=== PATIENT | male | born 1950 | race African-American/Black ===

== ENCOUNTER 2018-09-04 14:57 | Inpatient (IN) | payer OTHER ==
[2018-09-04] MEDS ORDERED: ALBUTEROL SO4 2.5/IPRATROPIUM 0.5 INH SOL 3 ML VIAL.NEB. NEB ONE ×2 (15:59→16:09)
[2018-09-04] MEDS: ALBUTEROL SO4 2.5/IPRATROPIUM 0.5 INH SOL 3 ML VIAL.NEB. NEB SCH ×4 (16:00→17:16)
--- NOTE | 2018-09-04 16:06 | PDOC ---
History of Present Illness - General Chief Complaint: Shortness of Breath Stated Complaint: DIFFICULTY BREATHING Time Seen by Provider: 09/04/18 15:55 - History of Present Illness Initial Comments: 09/04/18 16:16 Mr. Kent is a 68 yo male w/ pmh of HTN, HLD, COPD, Prostate CA (last radiation reportedly today) who presents for evaluation of several month history of worsening shortness of breath. Patient was reportedly saturating in low 80 %'s in PCP's office today; sent in for admission by Dr. Parker. Patient reports he has steadily been getting more short of breath over the last 4 months. Denies any associated symptoms other than cough with clear sputum the last 7 days. The patient denies chest pain, headache and dizziness. Denies fever, chills, nausea, vomit, diarrhea and constipation. Denies dysuria, frequency, urgency and hematuria. Past History - Past Medical History Allergies/Adverse Reactions: Allergies Allergy/AdvReac Type Severity Reaction Status Date / Time No Known Allergies Allergy Verified 09/04/18 16:20 Home Medications: Ambulatory Orders Amlodipine Besylate [Norvasc -] 10 mg PO DAILY 09/04/18 Losartan Potassium 0 mg PO DAILY 09/04/18 Cancer: Yes (prostate on IRT) COPD: Yes HTN: Yes - Surgical History Appendectomy: Yes - Suicide/Smoking/Psychosocial Hx Smoking History: Former smoker Have you smoked in the past 12 months: No Information on smoking cessation initiated: No Hx Alcohol Use: No Drug/Substance Use Hx: No Review of Systems - Review of Systems Comments:: 09/04/18 16:29 GENERAL/CONSTITUTIONAL: No fever or chills. No weakness. HEAD, EYES, EARS, NOSE AND THROAT: No change in vision. No ear pain or discharge. No sore throat. CARDIOVASCULAR: +Shortness of breath on exertion and at rest as described. No chest pain RESPIRATORY: No cough, wheezing, or hemoptysis. GASTROINTESTINAL: No nausea, vomiting, diarrhea or constipation. GENITOURINARY: No dysuria, frequency, or change in urination. MUSCULOSKELETAL: No joint or muscle swelling or pain. No neck or back pain. SKIN: No rash NEUROLOGIC: No headache, vertigo, loss of consciousness, or change in strength/ sensation. ENDOCRINE: No increased thirst. No abnormal weight change HEMATOLOGIC/LYMPHATIC: No anemia, easy bleeding, or history of blood clots. ALLERGIC/IMMUNOLOGIC: No hives or skin allergy. *Physical Exam - Vital Signs Last Vital Signs Temp Pulse Resp BP Pulse Ox 98.5 F 87 18 138/81 92 L 09/04/18 15:17 09/04/18 15:17 09/04/18 15:17 09/04/18 15:17 09/04/18 15:17 - Physical Exam Comments: 09/04/18 16:30 GENERAL: Awake, alert, and fully oriented, in no acute distress HEAD: No signs of trauma, normocephalic, atraumatic EYES: PERRLA, EOMI, sclera anicteric, conjunctiva clear ENT: Auricles normal inspection, hearing grossly normal, nares patent, oropharynx clear without exudates. Moist mucosa NECK: Normal ROM, supple, no lymphadenopathy, JVD, or masses LUNGS: +Patient exam limited by poor air movement. Mild wheezing and shallow breathing appreciated. HEART: Regular rate and rhythm, normal S1 and S2, no murmurs, rubs or gallops, peripheral pulses normal and equal bilaterally. ABDOMEN: Soft, nontender, normoactive bowel sounds. No guarding, no rebound. No masses EXTREMITIES: Normal inspection, Normal range of motion, no edema. No clubbing or cyanosis. NEUROLOGICAL: Cranial nerves II through XII grossly intact. Normal speech, normal gait, no focal sensorimotor deficits SKIN: Warm, Dry, normal turgor, no rashes or lesions noted. Moderate Sedation - Procedure Monitoring Vital Signs: Procedure Monitoring Vital Signs Temperature 98.5 F 09/04/18 15:17 Pulse Rate 87 09/04/18 15:17 Respiratory Rate 18 09/04/18 15:17 Blood Pressure 138/81 09/04/18 15:17 O2 Sat by Pulse Oximetry (%) 92 L 09/04/18 15:17 ED Treatment Course - LABORATORY CBC & Chemistry Diagram: 09/04/18 16:00 09/04/18 16:00 Medical Decision Making - Medical Decision Making 09/04/18 16:39 Mr. Kent is a 68 yo male w/ pmh as described who presents for evaluation of worsening shortness of breath noted to be satting in low 80's in PCP's office. Patient evaluated with cardiac labs as well as cbc/cmp/blood cultures for infectious/electrolyte abnormalities. Patient improved with 4L O2 and duoneb treatment. Patient admitted to hospitalist for further evaluation and care. 09/04/18 17:03 Patient noted to have elevated H/H as below. Patient exam improved following O2 / duoneb treatment. Will continue to follow-up while workup in progress. *DC/Admit/Observation/Transfer Diagnosis at time of Disposition: COPD exacerbation, Shortness of breath - Discharge Dispostion Decision to Admit order: Yes - Referrals - Patient Instructions - Post Discharge Activity
[2018-09-04 16:43] LABS: BASO % 0.4 % (0-2.0); EOS % 2.8 % (0-4.5); HEMATOCRIT 52.4 % (35.4-49); HEMOGLOBIN 17.7 GM/dL (11.7-16.9); LYMPH % 5.3 % (8-40); MCH 34.2 pg (25.7-33.7); MCHC 33.8 g/dl (32.0-35.9); MEAN CELL VOLUME 101.2 fl (80-96); MEAN PLT VOLUME 8.2 fl (7.5-11.1); MONO % 13.7 % (3.8-10.2); NEUT % 77.8 % (42.8-82.8); PLATELET COUNT 178 K/MM3 (134-434); RBC 5.18 M/mm3 (4.00-5.60); RDW 14.7 % (11.9-15.9); WHITE BLOOD COUNT 5.1 K/mm3 (4.0-10.0)
[2018-09-04 17:01] LABS: INR 1.1 (0.83-1.09)
[2018-09-04 17:52] LABS: ALBUMIN 3.3 g/dl (3.4-5.0); ALK PHOS 85 U/L (45-117); ANION GAP 5 MMOL/L (8-16); BILIRUBIN,TOTAL 0.3 mg/dL (0.2-1); BLOOD UREA NITROGEN 11 mg/dL (7-18); CHLORIDE 100 mmol/L (98-107); CO2 33 mmol/L (21-32); CREATININE 0.8 mg/dL (0.55-1.3); GLUCOSE,RANDOM 116 mg/dL (74-106); POTASSIUM 4.2 mmol/L (3.5-5.1); SGOT/AST 14 U/L (15-37); SGPT/ALT 31 U/L (13-61); SODIUM 138 mmol/L (136-145); TOT PROT 7.4 g/dl (6.4-8.2)
--- NOTE | 2018-09-04 17:58 | HP ---
Admitting History and Physical - Admission Chief Complaint: worsening SOB History of Present Illness: Patient is a 68 y/o male with past medical history of HTN, HLD, COPD, Prostate CA (last radiation treatment was today). Patient complain of worsening SOB for 4-5 month period. Patient was in PMD office today and was noted with SpO2 in 80s and was instructed to come to [facility] ER for further evaluation. History Source: Patient Limitations to Obtaining History: No Limitations - Past Medical History Cardiovascular: Yes: HTN, Hyperlipdemia Pulmonary: Yes: COPD Renal/: Yes: Cancer (Prostate) Heme/Onc: Yes: Current Radiation Therapy (Prostate CA) - Past Surgical History Past Surgical History: Yes: Appendectomy - Smoking History Smoking history: Former smoker Have you smoked in the past 12 months: No - Alcohol/Substance Use Hx Alcohol Use: No - Social History Usual Living Arrangement: Yes: Alone ADL: Independent History of Recent Travel: No <Addis Dahl - Last Filed: 09/04/18 17:53> Home Medications <Addis Dahl - Last Filed: 09/04/18 17:53> <Kaley Avalos - Last Filed: 09/05/18 16:56> - Allergies Allergies/Adverse Reactions: Allergies Allergy/AdvReac Type Severity Reaction Status Date / Time No Known Allergies Allergy Verified 09/04/18 16:20 - Home Medications Home Medications: Ambulatory Orders Amlodipine Besylate [Norvasc -] 10 mg PO DAILY 09/04/18 Losartan Potassium 0 mg PO DAILY 09/04/18 Review of Systems - Review of Systems Constitutional: reports: Lethargy Eyes: reports: No Symptoms HENT: reports: No Symptoms Neck: reports: No Symptoms Cardiovascular: reports: No Symptoms Respiratory: reports: Cough, SOB, SOB on Exertion Gastrointestinal: reports: Diarrhea Genitourinary: reports: Frequency Breasts: reports: No Symptoms Reported Musculoskeletal: reports: No Symptoms Integumentary: reports: No Symptoms Neurological: reports: No Symptoms Endocrine: reports: No Symptoms Hematology/Lymphatic: reports: No Symptoms Psychiatric: reports: No Symptoms <Addis Dahl - Last Filed: 09/04/18 17:53> Physical Examination Vital Signs: Vital Signs Temperature 98.5 F 09/04/18 15:17 Pulse Rate 87 09/04/18 15:17 Respiratory Rate 18 09/04/18 15:17 Blood Pressure 138/81 09/04/18 15:17 O2 Sat by Pulse Oximetry (%) 92 L 09/04/18 15:17 Constitutional: Yes: Well Nourished, Calm, Mild Distress Eyes: Yes: Conjunctiva Clear HENT: Yes: Atraumatic Neck: Yes: Supple Cardiovascular: Yes: Regular Rate and Rhythm Respiratory: Yes: Accessory Muscle Use (mild), Diminished Gastrointestinal: Yes: Normal Bowel Sounds, Soft Musculoskeletal: Yes: WNL Extremities: Yes: WNL Edema: No Integumentary: Yes: WNL Neurological: Yes: Alert, Oriented Psychiatric: Yes: Alert, Oriented Labs: CBC, BMP 09/04/18 16:00 09/04/18 16:00 <Addis Dahl - Last Filed: 09/04/18 17:53> Vital Signs: Vital Signs Temperature 98.4 F 09/05/18 16:12 Pulse Rate 81 09/05/18 16:12 Respiratory Rate 22 H 09/05/18 16:12 Blood Pressure 130/97 09/05/18 16:12 O2 Sat by Pulse Oximetry (%) 95 09/05/18 16:12 Labs: CBC, BMP 09/05/18 05:00 09/05/18 05:00 <Kaley Avalos - Last Filed: 09/05/18 16:56> Problem List - Problems (1) Shortness of breath Code(s): R06.02 - SHORTNESS OF BREATH (2) COPD exacerbation Code(s): J44.1 - CHRONIC OBSTRUCTIVE PULMONARY DISEASE W (ACUTE) EXACERBATION (3) HTN (hypertension) Code(s): I10 - ESSENTIAL (PRIMARY) HYPERTENSION <Addis Dahl - Last Filed: 09/04/18 17:53> Assessment/Plan -admit to med-surg -pulm consult for COPD exacerbation -Hematology consult for elev H/H, will monitor for downward trend -Oncology consult due to prostate CA -cont with amlodipine, losartan -lipid profile -CXR result pending -albuterol neb tx PRN -O2 via NC, keep SpO2 >90% -dvt ppx -low Na diet <Addis Dahl - Last Filed: 09/04/18 17:53> PATIENT SEEN AND EXAMINED AND I AGREE WITH THE ABOVE NOTE <Kaley Avalos - Last Filed: 09/05/18 16:56>
[2018-09-04] MEDS ORDERED: ALBUTEROL SO4 0.083% IH SOL 2.5 MG/3 ML VIAL.NEB. NEB PRN (18:07)
--- NOTE | 2018-09-04 18:31 | PDOC ---
Attending Attestation - HPI HPI: 09/04/18 18:48 The patient is a 68 year old male, with a significant past medical hx of HTN, HLD, COPD, Prostate CA (Last radiation 09/04/18), who presents to the ED today complaining of cough.The patient reports his cough worsened on monday, and he is becoming increasingly SOB on exertion. The patient denies fever, chills, and nausea. Denies vomit, diarrhea and constipation.Denies any chest pain or SOB. Patient denies headache, dizziness, and lightheadedness. Denies dysuria, frequency, urgency and hematuria - Physicial Exam PE: 09/04/18 18:48 GENERAL: Well developed, well nourished. Awake and alert. No acute distress. HEENT: Normocephalic, atraumatic. PERRLA, EOMI. No conjunctival pallor. Sclera are non- icteric. Moist mucous membranes. Oropharynx is clear. NECK: Supple. Full ROM. No JVD. Carotid pulses 2+ and symmetric, without bruits. No thyromegaly. No lymphadenopathy. CARDIOVASCULAR: Regular rate and rhythm. No murmurs, rubs, or gallops. Distal pulses are 2+ and symmetric. PULMONARY: (+) Scattered rhonchi.(+) slight hypoxic (low 91). Lungs clear to auscultation bilaterally. No wheezing or rales. ABDOMINAL: Soft. Non-tender. Non-distended. No rebound or guarding. No organomegaly. Normoactive bowel sounds. MUSCULOSKELETAL Normal range of motion at all joints. No bony deformities or tenderness. No CVA tenderness. EXTREMITIES: No cyanosis. No clubbing. No pitting edema. No calf tenderness. SKIN: Warm and dry. Normal capillary refill. No rashes. No jaundice. NEUROLOGICAL: Alert, awake, appropriate. Cranial nerves 2-12 intact. No deficits to light touch and temperature natali face, upper extremities and lower extremities. No motor deficits in the in face, upper extremities and lower extremities. Normoreflexic in the upper and lower extremities. Normal speech. PSYCHIATRIC: Cooperative. Good eye contact. Appropriate mood and affect. <Windy Reyes - Last Filed: 09/04/18 18:48> - Resident Resident Name: Daniel Brewer - ED Attending Attestation I have performed the following: I have examined & evaluated the patient, The case was reviewed & discussed with the resident, I agree w/resident's findings & plan, Exceptions are as noted - Medical Decision Making 09/04/18 19:43 68-year-old male went to see Dr. Parker today for routine visit and he was found to have a pulse ox in the 80s. Patient does have a history of COPD and has been getting radiation treatment for his prostate cancer. Patient states that he has chronic shortness of breath, but ever since it has become much more problematic. He finds now that he is particularly short of breath if he exerts himself pt is afebrile , cxr no infiltrates imp copd exacerbation 09/04/18 20:31 09/05/18 01:05 <Citlali Cota - Last Filed: 09/05/18 01:05> Attestations - Attestations 09/04/18 18:49 Documentation prepared by Windy Reyes, acting as medical officer for Citlali Cota MD <Windy Reyes - Last Filed: 09/04/18 18:48>
[2018-09-05 06:24] LABS: HEMATOCRIT 52.7 % (35.4-49); HEMOGLOBIN 17.6 GM/dL (11.7-16.9); MCH 34.4 pg (25.7-33.7); MCHC 33.4 g/dl (32.0-35.9); MEAN CELL VOLUME 102.9 fl (80-96); PLATELET COUNT 153 K/MM3 (134-434); RBC 5.12 M/mm3 (4.00-5.60); RDW 14.6 % (11.9-15.9); WHITE BLOOD COUNT 4.8 K/mm3 (4.0-10.0)
[2018-09-05 06:57] LABS: ALBUMIN 3.1 g/dl (3.4-5.0); ALK PHOS 84 U/L (45-117); ANION GAP 2 MMOL/L (8-16); BILIRUBIN,TOTAL 0.4 mg/dL (0.2-1); BLOOD UREA NITROGEN 8 mg/dL (7-18); CALCIUM 8.5 mg/dL (8.5-10.1); CHLORIDE 103 mmol/L (98-107); CHOLESTEROL 184 mg/dL (50-200); CO2 33 mmol/L (21-32); CREATININE 0.7 mg/dL (0.55-1.3); GLUCOSE,RANDOM 99 mg/dL (74-106); HDL CHOLESTEROL 45 mg/dL (40-60); POTASSIUM 4.4 mmol/L (3.5-5.1); SGOT/AST 12 U/L (15-37); SGPT/ALT 27 U/L (13-61); SODIUM 138 mmol/L (136-145); TOT PROT 6.6 g/dl (6.4-8.2); TRIGLYCERIDES 84 mg/dL (0-150)
[2018-09-05] MEDS: LOSARTAN POTASSIUM 25 MG TABLET PO SCH (09:55)
[2018-09-05] MEDS: amLODIPine BESYLATE 10 MG TABLET (FP) PO SCH (09:55)
--- NOTE | 2018-09-05 09:56 | EKG ---
Test Reason : Blood Pressure : / mmHG Vent. Rate : 078 BPM Atrial Rate : 078 BPM P-R Int : 142 ms QRS Dur : 080 ms QT Int : 392 ms P-R-T Axes : 036 -16 013 degrees QTc Int : 446 ms NORMAL SINUS RHYTHM SEPTAL INFARCT , AGE UNDETERMINED T WAVE ABNORMALITY, CONSIDER ANTERIOR ISCHEMIA ABNORMAL ECG WHEN COMPARED WITH ECG OF 21-JUL-2017 11:55, SEPTAL INFARCT IS NOW PRESENT T WAVE INVERSION NOW EVIDENT IN ANTERIOR LEADS NONSPECIFIC T WAVE ABNORMALITY NO LONGER EVIDENT IN LATERAL LEADS Confirmed by ALFREDO CHILDRESS, KP ([id number] on 09/05/2018 9:56:05 AM Referred By: Confirmed By:KP FUENTES MD
--- NOTE | 2018-09-05 10:02 | PN ---
Progress Note, Physician History of Present Illness: 68 y/o male with past medical history of HTN, HLD, COPD, Prostate CA (last radiation treatment was today). Patient complain of worsening SOB . Patient was in PMD office today and was noted with SpO2 in 80s and was instructed to come to [facility] ER for further evaluation. - Current Medication List Current Medications: Active Medications Albuterol Sulfate (Ventolin 0.083% Nebulizer Soln -) 1 amp NEB Q6H PRN PRN Reason: SHORT OF BREATH/WHEEZING Amlodipine Besylate (Norvasc -) 10 mg PO DAILY [facility] Last Admin: 09/05/18 09:55 Dose: 10 mg Brimonidine Tartrate (Alphagan 0.2% -) 1 drop OU BID BRISEIDA Losartan Potassium (Cozaar -) 25 mg PO DAILY [facility] Last Admin: 09/05/18 09:55 Dose: 25 mg Timolol Maleate (Timoptic 0.5%) 1 drop OU BID [facility] - Objective Vital Signs: Vital Signs Temperature 98.5 F 09/04/18 15:17 Pulse Rate 90 09/05/18 09:55 Respiratory Rate 18 09/05/18 09:55 Blood Pressure 141/98 09/05/18 09:55 O2 Sat by Pulse Oximetry (%) 92 L 09/05/18 09:55 Cardiovascular: Yes: Regular Rate and Rhythm Respiratory: Yes: Diminished, On Nasal O2 Gastrointestinal: Yes: Normal Bowel Sounds, Soft Labs: CBC, BMP 09/05/18 05:00 09/05/18 05:00 INR, PTT INR 1.10 (0.83-1.09) H 09/04/18 16:00 Problem List - Problems (1) Abnormal EKG Assessment/Plan: -New changes --T wave abnormalities -Follow up ekg -CE -Cardiology consult -echo Code(s): R94.31 - ABNORMAL ELECTROCARDIOGRAM [ECG] [EKG] (2) COPD exacerbation Assessment/Plan: -IV Steroids- -Pulm consult -Nebs Code(s): J44.1 - CHRONIC OBSTRUCTIVE PULMONARY DISEASE W (ACUTE) EXACERBATION (3) HTN (hypertension) Code(s): I10 - ESSENTIAL (PRIMARY) HYPERTENSION (4) Shortness of breath Assessment/Plan: -asa andrea Code(s): R06.02 - SHORTNESS OF BREATH
[2018-09-05] MEDS: TIMOLOL 0.5% OPHTHALMIC SOL 5 ML BOTTLE OU SCH ×2 (11:00→21:22)
[2018-09-05] MEDS: BRIMONIDINE TARTRATE 0.2% OPHTHALMIC 5 ML BOTTLE OU SCH ×2 (11:00→21:22)
--- NOTE | 2018-09-05 14:15 | CONSULT ---
Consult Consult Specialty:: Hemonc Referred by:: Latia Reason for Consultation:: h/o prostate ca - History of Present Illness Chief Complaint: COPD exacerbation History of Present Illness: 68 y/o male h/o HTN, HLD, COPD, Prostate CA (last rt on 09/04 at [facility], follows Dr. Morataya) admitted to the hospital for COPD exacerbation. Patient states he was diagnosed with prostate ca last year and has been on rt and following Dr. Morataya (urology). Last year he had a bone scan which was negative for mets. Denies weight loss, back pain, fever, chills, chest pain. - History Source History Provided By: Patient Limitations to Obtaining History: No Limitations - Past Medical History Cardio/Vascular: Yes: HTN, Hyperlipdemia Pulmonary: Yes: COPD Renal/: Yes: Cancer (Prostate) - Past Surgical History Past Surgical History: Yes: Appendectomy - Alcohol/Substance Use Hx Alcohol Use: No - Smoking History Smoking history: Former smoker Have you smoked in the past 12 months: No - Social History ADL: Independent History of Recent Travel: No Home Medications - Allergies Allergies/Adverse Reactions: Allergies Allergy/AdvReac Type Severity Reaction Status Date / Time No Known Allergies Allergy Verified 09/04/18 16:20 - Home Medications Home Medications: Ambulatory Orders Amlodipine Besylate [Norvasc -] 10 mg PO DAILY 09/04/18 Losartan Potassium 0 mg PO DAILY 09/04/18 Review of Systems - Review of Systems Constitutional: reports: Loss of Appetite. denies: Chills, Fever, Unintentional Wgt. Loss, Weakness Cardiovascular: reports: Shortness of Breath. denies: Chest Pain, Palpitations Respiratory: reports: Cough Neurological: reports: No Symptoms Hematology/Lymphatic: denies: Easily Bruised, Excessive Bleeding Physical Exam Vital Signs: Vital Signs Temperature 98.5 F 09/04/18 15:17 Pulse Rate 89 09/05/18 11:57 Respiratory Rate 189 H 09/05/18 11:57 Blood Pressure 127/85 09/05/18 11:57 O2 Sat by Pulse Oximetry (%) 95 09/05/18 11:57 Constitutional: Yes: Mild Distress Cardiovascular: Yes: Regular Rate and Rhythm, S1, S2. No: Murmur Respiratory: Yes: Diminished, Wheezes Gastrointestinal: Yes: Normal Bowel Sounds, Soft, Abdomen, Obese. No: Tenderness Musculoskeletal: No: Back Pain Edema: No Peripheral Pulses WNL: Yes Neurological: Yes: Alert, Oriented Labs: CBC, BMP 09/05/18 05:00 09/05/18 05:00 Assessment/Plan 68 y/o male h/o HTN, HLD, COPD, Prostate CA (last rt on 09/04 at [facility], follows Dr. Morataya) admitted to hospital for copd exacerbation now being evaluated for h/o prostate ca. h/o prostate CA - bone scan last year negative for mets - following urology and getting RT as outpatient - Cont. outpatient RT and followup with urology - call back as needed Thank you for the consult opportunity [employer] PGY3 Visit type - Emergency Visit Emergency Visit: Yes ED Registration Date: 09/04/18 Care time: The patient presented to the Emergency Department on the above date and was hospitalized for further evaluation of their emergent condition. - New Patient This patient is new to me today: Yes Date on this admission: 09/06/18 - Critical Care Critical Care patient: No
--- NOTE | 2018-09-05 15:27 | ECHO ---
Name: WALESKA SHEPHERD Exam:Adult Echocardiogram Study Date: 09/05/2018 02:10 PM Age: 68 yrs Reason For Study: abn ekg Height: 68 in Weight: 186 lb BSA: 2.0 m2 MMode/2D Measurements & Calculations IVSd: 0.82 cm Ao root diam: 2.5 cm LVIDd: 3.9 cm LA dimension: 3.2 cm LVIDs: 2.7 cm LVPWd: 0.96 cm EDV(Teich): 65.9 ml LVOT diam: 2.0 cm ESV(Teich): 27.0 ml Doppler Measurements & Calculations MV E max pierre: 48.9 cm/sec Ao V2 max: 182.6 cm/sec MV A max pierre: 82.9 cm/sec Ao max P.3 mmHg MV E/A: 0.59 MV dec time: 0.33 sec TR max pierre: 266.0 cm/sec Med Peak E' Pierre: 5.6 cm/sec TR max P.3 mmHg Med E/e': 8.7 Procedure A two-dimensional transthoracic echocardiogram with color flow and Doppler was performed. The study w as technically difficult with many images being suboptimal in quality. Left Ventricle The left ventricular size, thickness and function are normal. The left ventricle is not well visualiz ed. The left ventricular ejection fraction is normal. E/A reversal consistent with but not diagnostic of poor LV compliance. Regional wall motion abnormalities cannot be excluded due to limited visualization. Right Ventricle The right ventricle is not well visualized. Atria Normal left and right atrial size and function. Mitral Valve There is mild mitral valve thickening. There is no mitral valve stenosis. There is mild mitral regurg itation. Tricuspid Valve There is mild tricuspid valve thickening. There is no tricuspid stenosis. There is mild tricuspid regurgitation. Right ventricular systolic pressure is elevated at 30-40mmHg. Aortic Valve The aortic valve is not well visualized. No hemodynamically significant valvular aortic stenosis. No aortic regurgitation is present. Pulmonic Valve The pulmonic valve is not well visualized. Great Vessels The aortic root is normal size. Pericardium/Pleura There is no pericardial effusion. Interpretation Summary The left ventricular size, thickness and function are normal The left ventricular ejection fraction is normal. There is mild mitral regurgitation. There is mild tricuspid regurgitation. Right ventricular systolic pressure is elevated at 30-40mmHg. The right ventricle is not well visualized. E/A reversal consistent with but not diagnostic of poor LV compliance Regional wall motion abnormalities cannot be excluded due to limited visualization. The study was technically difficult with many images being suboptimal in quality. The left ventricle is not well visualized. MD Junior Velázquez 09/05/2018 03:26 PM
--- NOTE | 2018-09-05 15:38 | CON.CARD ---
Consult Consult Specialty:: Cardiology - History of Present Illness History of Present Illness: This is a 68 year old male with no past cardiac history other than HTN. PMH HLD , COPD, Prostate CA (last radiation reportedly yesterday). He presents now with a 7 day history of a severe cough and dyspnea. He also developed a horse voice. The cough was with clear sputum and he has been afebrile. 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 No chest pain. Echo today shows normal LV function. Trop neg x 2 EKG unremarkable - Past Medical History Cardio/Vascular: Yes: HTN, Hyperlipdemia Pulmonary: Yes: COPD Renal/: Yes: Cancer (Prostate) - Past Surgical History Past Surgical History: Yes: Appendectomy - Alcohol/Substance Use Hx Alcohol Use: No - Smoking History Smoking history: Former smoker Have you smoked in the past 12 months: No - Social History ADL: Independent History of Recent Travel: No Home Medications - Allergies Allergies/Adverse Reactions: Allergies Allergy/AdvReac Type Severity Reaction Status Date / Time No Known Allergies Allergy Verified 09/04/18 16:20 - Home Medications Home Medications: Ambulatory Orders Amlodipine Besylate [Norvasc -] 10 mg PO DAILY 09/04/18 Losartan Potassium 0 mg PO DAILY 09/04/18 Vital Signs: Vital Signs Temperature 98.5 F 09/04/18 15:17 Pulse Rate 89 09/05/18 11:57 Respiratory Rate 189 H 09/05/18 11:57 Blood Pressure 127/85 09/05/18 11:57 O2 Sat by Pulse Oximetry (%) 95 09/05/18 11:57 Constitutional: Yes: Mild Distress HENT: Yes: WNL Neck: Yes: WNL Respiratory: Yes: Diminished (Bilat) Gastrointestinal: Yes: Soft Cardiovascular: Yes: Regular Rate and Rhythm (NL S1 S2 no MRHG) Edema: No Neurological: Yes: Alert, Oriented - Other Data Labs, Other Data: CBC, BMP 09/05/18 05:00 09/05/18 05:00 INR, PTT INR 1.10 (0.83-1.09) H 09/04/18 16:00 Troponin, BNP 09/04/18 09/05/18 16:00 13:20 Troponin I < 0.02 < 0.02 Troponin, BNP 09/04/18 09/05/18 16:00 13:20 Troponin I < 0.02 < 0.02 Assessment/Plan 68 year old male with no past cardiac history other than HTN. PMH HLD, COPD, Prostate CA (last radiation reportedly yesterday). He presents now with a 7 day history of a severe cough and dyspnea. He also developed a horse voice. The cough was with clear sputum and he has been afebrile. 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 No chest pain. Echo today shows normal LV function. Trop neg x 2 EKG unremarkable Dyspnea Does not appear to be cardiac given EKG/Trops/Echo and history Would consider outpatient stress testing when stable
--- NOTE | 2018-09-05 15:52 | EKG ---
Test Reason : Blood Pressure : / mmHG Vent. Rate : 078 BPM Atrial Rate : 078 BPM P-R Int : 138 ms QRS Dur : 084 ms QT Int : 378 ms P-R-T Axes : 063 -10 007 degrees QTc Int : 430 ms NORMAL SINUS RHYTHM T WAVE ABNORMALITY, CONSIDER ANTERIOR ISCHEMIA ABNORMAL ECG WHEN COMPARED WITH ECG OF 04-SEP-2018 16:27, CRITERIA FOR SEPTAL INFARCT ARE NO LONGER PRESENT Confirmed by ALFREDO CHILDRESS, KP ([id number]) on 09/05/2018 3:52:16 PM Referred By: Juju DELGADILLO Confirmed By:KP FUENTES MD
--- NOTE | 2018-09-05 16:07 | PN ---
Progress Note (short form) - Note Progress Note: PULMONARY CONSULTATION DICTATED 09/05/18 IMP ACUTE ON CHRONIC HYPOXEMIC RESPIRATORY FAILURE COPD EXACERBATION PULMONARY HTN SECONDARY ERYTHROCYTOSIS PROSTATE CA S/P RT HTN TOBACCO ABUSE PLAN O2 INHALED BRONCHODILATORS MEDROL ABG ON RA CHEST CT DVT PROPHYLAXIS SMOKING CESSATION COUNSELED DR PALACIOS Problem List - Problems (1) Acute on chronic respiratory failure with hypercapnia Code(s): J96.22 - ACUTE AND CHRONIC RESPIRATORY FAILURE WITH HYPERCAPNIA (2) COPD exacerbation Code(s): J44.1 - CHRONIC OBSTRUCTIVE PULMONARY DISEASE W (ACUTE) EXACERBATION (3) HTN (hypertension) Code(s): I10 - ESSENTIAL (PRIMARY) HYPERTENSION (4) Shortness of breath Code(s): R06.02 - SHORTNESS OF BREATH (5) Pulmonary HTN Code(s): I27.20 - PULMONARY HYPERTENSION, UNSPECIFIED (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
--- NOTE | 2018-09-05 16:14 | PN ---
Progress Note (short form) - Note Progress Note: PULMONARY CONSULTATION DICTATED 09/05/18 IMP ACUTE ON CHRONIC HYPOXEMIC RESPIRATORY FAILURE COPD EXACERBATION PULMONARY HTN SECONDARY ERYTHROCYTOSIS LIKELY SECONDARY TO CHRONIC HYPOXEMIA PROSTATE CA S/P RT HTN TOBACCO ABUSE LIKELY OSAS PLAN O2 INHALED BRONCHODILATORS MEDROL ABG ON RA CHEST CT DVT PROPHYLAXIS SMOKING CESSATION COUNSELED SLEEP STUDIES OUTPATIENT DR PALACIOS Problem List - Problems (1) Acute on chronic respiratory failure with hypercapnia Code(s): J96.22 - ACUTE AND CHRONIC RESPIRATORY FAILURE WITH HYPERCAPNIA (2) COPD exacerbation Code(s): J44.1 - CHRONIC OBSTRUCTIVE PULMONARY DISEASE W (ACUTE) EXACERBATION (3) HTN (hypertension) Code(s): I10 - ESSENTIAL (PRIMARY) HYPERTENSION (4) Shortness of breath Code(s): R06.02 - SHORTNESS OF BREATH (5) Pulmonary HTN Code(s): I27.20 - PULMONARY HYPERTENSION, UNSPECIFIED (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 (8) Tobacco abuse Code(s): Z72.0 - TOBACCO USE (9) Tobacco abuse counseling Code(s): Z71.6 - TOBACCO ABUSE COUNSELING
[2018-09-05 16:29] VITALS: BMI 27.4
[2018-09-05] MEDS ORDERED: FLU VACCINE QUAD 60 MCG/0.5 ML (MDV 18-19) IM ONE (16:29)
[2018-09-05] MEDS ORDERED: PNEUMOC 13-VAL CONJ-DIP CRM/PF 0.5 ML DISP.SYRIN IM ONE (16:29)
[2018-09-05 16:36] LABS: ARTERIAL BLD GAS O2 SATURATION 84.9 % (90-98.9); ARTERIAL BLOOD GAS BASE EXCESS 4.4 meq/l (-2-2); ARTERIAL BLOOD GAS PO2 53.8 mmHg (80-100); ARTERIAL BLOOD GAS pH 7.33 (7.35-7.45)
[2018-09-05 16:39] LABS: ALLENS TEST POSITIVE
[2018-09-05 16:41] LABS: ARTERIAL BLOOD GAS PCO2 64.3 mmHg (35-45)
--- NOTE | 2018-09-05 16:52 | CONS ---
DATE OF CONSULTATION: 09/05/2018 PULMONARY CONSULTATION REFERRING PHYSICIAN: Pat Jeffery M.D. HISTORY OF PRESENT ILLNESS: The patient is a 68-year-old black male with a past medical history of chronic obstructive pulmonary disease, hypertension, hyperlipidemia, prostate CA status post RT as well as hormonal therapy admitted to [facility] with complaint of 3-4 month history of increasing shortness of breath and dyspnea on exertion. Patient is noted in PMD's office on the day of admission to be hypoxic with O2 saturations in the 80s, at which time he presented to the emergency room. Patient has history of tobacco use since teenage years, apparently is still smoking. Denies any occupational exposure to chemicals or fumes. According to the patient, for the past few months he started noticing increasing shortness of breath and dyspnea on exertion. He is only able to ambulate a few feet without getting markedly dyspneic. He also complains of cough, nonproductive, as well as wheezing. Denies any hemoptysis, denies any chest pain or palpitations. Denies any fevers, weight loss, or night sweats. On admission he was felt to have acute exacerbation of COPD, he was placed on inhaled bronchodilators and steroids and transferred to medical floor for further management. Of note is he notes to have elevated hemoglobin and hematocrit. Patient was evaluated by cardiology consultation. He underwent echocardiogram which revealed normal LV function, RV function, with moderate pulmonary hypertension and right ventricular systolic pressure of 34 to 40 mmHg. PAST MEDICAL HISTORY: Again includes hypertension, COPD, prostate PA status post RT as well as hormonal therapy, hyperlipidemia. REVIEW OF SYSTEMS: Positive orthopnea. Positive dyspnea. No chest pain. No palpitations. Positive cough. No hemoptysis. Positive increased abdominal girth. No lower extremity edema. CURRENT MEDICATIONS: Include Cozaar, albuterol and Norvasc. PHYSICAL EXAMINATION: GENERAL: The patient is a well-developed, well-nourished male, awake, alert, in no acute respiratory distress. He is afebrile. VITAL SIGNS: Blood pressure 130/97, respiratory rate 20, O2 saturation is 79% to 80% on room air. HEENT: Normocephalic, atraumatic. NECK: Supple. HEART: Regular S1, S2. CHEST: Scattered bilateral wheezes. ABDOMEN: Soft, bowel sounds positive. EXTREMITIES: No cyanosis, edema. LABORATORY: WBC is 4.8, hemoglobin 17.6, hematocrit 52.7, platelet count of 153 ,000. INR is 1.10. BUN 8, creatinine 0.7. Chest x-ray, no infiltrates and no effusions. IMPRESSION: 1. Likely acute on chronic hypoxemic respiratory failure secondary to advanced chronic obstructive pulmonary disease. 2. History of prostate carcinoma status post radiation therapy and hormonal therapy. 3. Hypertension. 4. Pulmonary hypertension. 5. Secondary erythrocytosis likely secondary to chronic hypoxemia. PLAN: Will check arterial blood gases on room air, supplemental O2, inhaled bronchodilators, steroids, PFTs outpatient, low dose CT scan of the chest since longstanding history of tobacco use rule out possible underlying malignancy, monitor H and H. Patient does not require phlebotomy at this time. Also, check patient 's ambulatory O2 saturation prior to discharge on room air to determine whether he is a candidate for home O2. BLESSING PALACIOS M.D. [id number]
[2018-09-05] MEDS: methylPREDNISolone NA SUCC 40 MG/1 ML VIAL IVPUSH SCH ×2 (17:34→21:22)
[2018-09-05] MEDS: ALBUTEROL SO4 2.5/IPRATROPIUM 0.5 INH SOL 3 ML VIAL.NEB. NEB SCH (20:16)
[2018-09-06] MEDS: methylPREDNISolone NA SUCC 40 MG/1 ML VIAL IVPUSH SCH ×3 (02:51→17:55)
[2018-09-06] MEDS: ALBUTEROL SO4 2.5/IPRATROPIUM 0.5 INH SOL 3 ML VIAL.NEB. NEB SCH ×4 (07:25→20:05)
--- NOTE | 2018-09-06 08:21 | PN ---
Teaching Attending Note Name of Resident: Hair Fofana ATTENDING PHYSICIAN STATEMENT I saw and evaluated the patient. I reviewed the resident's note and discussed the case with the resident. I agree with the resident's findings and plan as documented. SUBJECTIVE: Patient seen and examined Localized prostate ca being treated with RT. Has dysuria and fecal incontinence from therapy. Has 2 more weeks of treatment . Presents with COPD exacebation Last Vital Signs Temp Pulse Resp BP Pulse Ox 98.0 F 87 20 122/98 95 09/06/18 06:00 09/06/18 06:00 09/06/18 06:00 09/06/18 06:00 09/05/18 21:00 HEENT: ROIXE, EOM Intact Oropharynx: No thrush, No mucositis Neck: Supple Nodes: Without adenopathy Cor: RSR, No murmurs, No gallops Lungs: Diminished breath sounds bilaterally Abd: Soft, Normal bowel sounds, No organomegaly testes descended, circumcised Ext:No significant edema Skin: No rashes, Integument intact Current Medications Generic Name Dose Route Start Last Admin Trade Name Freq PRN Reason Stop Dose Admin Albuterol Sulfate 1 amp 09/04/18 18:07 09/05/18 15:16 Ventolin 0.083% Nebulizer Soln - NEB 1 amp Q6H PRN Administration SHORT OF BREATH/WHEEZING Albuterol/Ipratropium 1 amp 09/05/18 20:00 09/06/18 07:25 Duoneb - NEB 1 amp RQID BRISEIDA Administration Amlodipine Besylate 10 mg 09/05/18 10:00 09/05/18 09:55 Norvasc - PO 10 mg DAILY BRISEIDA Administration Brimonidine Tartrate 1 drop 09/05/18 10:00 09/05/18 21:22 Alphagan 0.2% - OU 1 drop BID BRISEIDA Administration Losartan Potassium 25 mg 09/05/18 10:00 09/05/18 09:55 Cozaar - PO 25 mg DAILY BRISEIDA Administration Methylprednisolone Sodium Succinate 40 mg 09/05/18 16:15 09/06/18 02:51 Solu-Medrol - IVPUSH 40 mg Q6H-IV BRISEIDA Administration Timolol Maleate 1 drop 09/05/18 10:00 09/05/18 21:22 Timoptic 0.5% OU 1 drop BID BRISEIDA Administration OBJECTIVE: Impression: Prostate ca RT COPD Plan To complete course of RT as outpatient for locally advanced disease. Ongoing therapy for COPD. ASSESSMENT AND PLAN:
[2018-09-06] MEDS: TIMOLOL 0.5% OPHTHALMIC SOL 5 ML BOTTLE OU SCH ×2 (10:18→22:08)
[2018-09-06] MEDS: amLODIPine BESYLATE 10 MG TABLET (FP) PO SCH (10:18)
[2018-09-06] MEDS: LOSARTAN POTASSIUM 25 MG TABLET PO SCH (10:18)
[2018-09-06] MEDS: BRIMONIDINE TARTRATE 0.2% OPHTHALMIC 5 ML BOTTLE OU SCH ×2 (10:19→22:09)
--- NOTE | 2018-09-06 11:50 | PN ---
Progress Note (short form) - Note Progress Note: PULMONARY States breathing is better. Less cough and wheezing. Vital Signs Period Temp Pulse Resp BP Sys/Beck Pulse Ox Last 24 Hr 98.0 F-99.0 F 81-93 20-189 120-150/70-98 92-95 Gen: NAD at rest Heart: RRR Lung: decreased air entry, scattered wheezes Abd: soft, nontender Ext: no edema CBC, BMP 09/05/18 05:00 09/05/18 05:00 Active Medications Albuterol Sulfate (Ventolin 0.083% Nebulizer Soln -) 1 amp NEB Q6H PRN PRN Reason: SHORT OF BREATH/WHEEZING Last Admin: 09/05/18 15:16 Dose: 1 amp Albuterol/Ipratropium (Duoneb -) 1 amp NEB RQID [facility] Last Admin: 09/06/18 11:24 Dose: 1 amp Amlodipine Besylate (Norvasc -) 10 mg PO DAILY [facility] Last Admin: 09/06/18 10:18 Dose: 10 mg Brimonidine Tartrate (Alphagan 0.2% -) 1 drop OU BID [facility] Last Admin: 09/06/18 10:19 Dose: 1 drop Losartan Potassium (Cozaar -) 25 mg PO DAILY [facility] Last Admin: 09/06/18 10:18 Dose: 25 mg Methylprednisolone Sodium Succinate (Solu-Medrol -) 40 mg IVPUSH Q6H-IV BRISEIDA Last Admin: 09/06/18 08:53 Dose: 40 mg Timolol Maleate (Timoptic 0.5%) 1 drop OU BID [facility] Last Admin: 09/06/18 10:18 Dose: 1 drop A/P Acute on Chronic Hypoxic Respiratory Failure Acute COPD Exacerbation Pulmonary HTN Polycythemia likely due to Chronic Hypoxia HTN Smoker Suspect DU - will decrease medrol to q8h - inhaled bronchodilators - O2 to keep SpO2 >90% - smoking cessation - outpt PFTs, PSG - DVT prophylaxis
--- NOTE | 2018-09-06 12:49 | PN ---
Progress Note, Physician Chief Complaint: says breathing is better - Current Medication List Current Medications: Active Medications Albuterol Sulfate (Ventolin 0.083% Nebulizer Soln -) 1 amp NEB Q6H PRN PRN Reason: SHORT OF BREATH/WHEEZING Last Admin: 09/05/18 15:16 Dose: 1 amp Albuterol/Ipratropium (Duoneb -) 1 amp NEB RQID [facility] Last Admin: 09/06/18 11:24 Dose: 1 amp Amlodipine Besylate (Norvasc -) 10 mg PO DAILY [facility] Last Admin: 09/06/18 10:18 Dose: 10 mg Brimonidine Tartrate (Alphagan 0.2% -) 1 drop OU BID [facility] Last Admin: 09/06/18 10:19 Dose: 1 drop Losartan Potassium (Cozaar -) 25 mg PO DAILY [facility] Last Admin: 09/06/18 10:18 Dose: 25 mg Methylprednisolone Sodium Succinate (Solu-Medrol -) 40 mg IVPUSH Q8H-IV BRISEIDA Timolol Maleate (Timoptic 0.5%) 1 drop OU BID [facility] Last Admin: 09/06/18 10:18 Dose: 1 drop - Objective Vital Signs: Vital Signs Temperature 98.9 F 09/06/18 09:02 Pulse Rate 93 H 09/06/18 09:02 Respiratory Rate 22 H 09/06/18 09:02 Blood Pressure 150/95 09/06/18 09:02 O2 Sat by Pulse Oximetry (%) 92 L 09/06/18 09:00 Constitutional: Yes: Calm Cardiovascular: Yes: Regular Rate and Rhythm, S1, S2 Respiratory: Yes: Diminished Gastrointestinal: Yes: Normal Bowel Sounds, Soft Edema: No Neurological: Yes: Alert Labs: CBC, BMP 09/05/18 05:00 09/05/18 05:00 INR, PTT INR 1.10 (0.83-1.09) H 09/04/18 16:00 Problem List - Problems (1) Acute on chronic respiratory failure with hypercapnia Assessment/Plan: iv medrol taper to q8- clinincally improving requires oxygen continously as he becomes hypoxic when it is removed Code(s): J96.22 - ACUTE AND CHRONIC RESPIRATORY FAILURE WITH HYPERCAPNIA (2) Prostate CA Assessment/Plan: heme on board RT as outpatient Code(s): C61 - MALIGNANT NEOPLASM OF PROSTATE
[2018-09-06] MEDS ORDERED: PT OWN MED DRAWER 7, Y5N ONE (20:33)
[2018-09-06] MEDS: ATORVASTATIN CA 10 MG TABLET (FP) PO SCH (22:08)
[2018-09-07] MEDS ORDERED: PT OWN MED DRAWER 7, Y5N ONE (01:29)
[2018-09-07] MEDS: methylPREDNISolone NA SUCC 40 MG/1 ML VIAL IVPUSH SCH ×3 (02:40→21:25)
[2018-09-07 07:13] LABS: BASO % 0.1 % (0-2.0); HEMATOCRIT 52.5 % (35.4-49); HEMOGLOBIN 17.6 GM/dL (11.7-16.9); LYMPH % 1.6 % (8-40); MCH 34.5 pg (25.7-33.7); MCHC 33.6 g/dl (32.0-35.9); MEAN CELL VOLUME 102.6 fl (80-96); MEAN PLT VOLUME 8.5 fl (7.5-11.1); MONO % 3.2 % (3.8-10.2); NEUT % 95.1 % (42.8-82.8); PLATELET COUNT 161 K/MM3 (134-434); RBC 5.11 M/mm3 (4.00-5.60); RDW 14.6 % (11.9-15.9); WHITE BLOOD COUNT 10.2 K/mm3 (4.0-10.0)
[2018-09-07] MEDS: ALBUTEROL SO4 2.5/IPRATROPIUM 0.5 INH SOL 3 ML VIAL.NEB. NEB SCH ×4 (07:20→20:35)
[2018-09-07 07:39] LABS: ALBUMIN 3.1 g/dl (3.4-5.0); ALK PHOS 79 U/L (45-117); ANION GAP 6 MMOL/L (8-16); BILIRUBIN,TOTAL 0.3 mg/dL (0.2-1); BLOOD UREA NITROGEN 14 mg/dL (7-18); CALCIUM 8.7 mg/dL (8.5-10.1); CHLORIDE 102 mmol/L (98-107); CO2 33 mmol/L (21-32); CREATININE 0.8 mg/dL (0.55-1.3); GLUCOSE,RANDOM 135 mg/dL (74-106); POTASSIUM 4.7 mmol/L (3.5-5.1); SGOT/AST 7 U/L (15-37); SGPT/ALT 27 U/L (13-61); SODIUM 140 mmol/L (136-145); TOT PROT 6.7 g/dl (6.4-8.2)
[2018-09-07 10:03] LABS: ANISOCYTOSIS 0; MACROCYTOSIS 0; PLATELET ESTIMATE NORMAL
[2018-09-07] MEDS: TIMOLOL 0.5% OPHTHALMIC SOL 5 ML BOTTLE OU SCH ×2 (11:20→21:25)
[2018-09-07] MEDS: amLODIPine BESYLATE 10 MG TABLET (FP) PO SCH (11:21)
[2018-09-07] MEDS: BRIMONIDINE TARTRATE 0.2% OPHTHALMIC 5 ML BOTTLE OU SCH ×2 (11:21→21:25)
[2018-09-07] MEDS: LOSARTAN POTASSIUM 25 MG TABLET PO SCH (11:21)
--- NOTE | 2018-09-07 11:29 | PN ---
Progress Note, Physician Chief Complaint: patient seen and examined breathing is better still has productive cough - Current Medication List Current Medications: Active Medications Albuterol Sulfate (Ventolin 0.083% Nebulizer Soln -) 1 amp NEB Q6H PRN PRN Reason: SHORT OF BREATH/WHEEZING Last Admin: 09/05/18 15:16 Dose: 1 amp Albuterol/Ipratropium (Duoneb -) 1 amp NEB RQID [facility] Last Admin: 09/07/18 07:20 Dose: 1 amp Amlodipine Besylate (Norvasc -) 10 mg PO DAILY [facility] Last Admin: 09/07/18 11:21 Dose: 10 mg Atorvastatin Calcium (Lipitor -) 10 mg PO HS [facility] Last Admin: 09/06/18 22:08 Dose: 10 mg Brimonidine Tartrate (Alphagan 0.2% -) 1 drop OU BID [facility] Last Admin: 09/07/18 11:21 Dose: 1 drop Losartan Potassium (Cozaar -) 25 mg PO DAILY [facility] Last Admin: 09/07/18 11:21 Dose: 25 mg Methylprednisolone Sodium Succinate (Solu-Medrol -) 40 mg IVPUSH Q8H-IV [facility] Last Admin: 09/07/18 11:21 Dose: 40 mg Timolol Maleate (Timoptic 0.5%) 1 drop OU BID [facility] Last Admin: 09/07/18 11:20 Dose: 1 drop - Objective Vital Signs: Vital Signs Temperature 98.2 F 09/07/18 06:00 Pulse Rate 67 09/07/18 06:00 Respiratory Rate 22 H 09/07/18 06:00 Blood Pressure 124/83 09/07/18 06:00 O2 Sat by Pulse Oximetry (%) 94 L 09/06/18 21:00 Constitutional: Yes: Calm Cardiovascular: Yes: Regular Rate and Rhythm, S1, S2 Respiratory: Yes: Diminished Gastrointestinal: Yes: Normal Bowel Sounds, Soft Neurological: Yes: Alert, Oriented Labs: CBC, BMP 09/07/18 06:30 09/07/18 06:30 INR, PTT INR 1.10 (0.83-1.09) H 09/04/18 16:00 Problem List - Problems (1) Acute on chronic respiratory failure with hypercapnia Assessment/Plan: iv medrol taper to q12- clinincally improving requires oxygen continously as he becomes hypoxic when it is removed Code(s): Musa96.22 - ACUTE AND CHRONIC RESPIRATORY FAILURE WITH HYPERCAPNIA (2) Prostate CA Assessment/Plan: heme on board RT as outpatient Code(s): C61 - MALIGNANT NEOPLASM OF PROSTATE (3) Glaucoma Assessment/Plan: eye drops Code(s): H40.9 - UNSPECIFIED GLAUCOMA
--- NOTE | 2018-09-07 14:12 | PN ---
Progress Note, Physician History of Present Illness: PULMONARY ALERT,LESS DYSPNEIC - Current Medication List Current Medications: Active Medications Albuterol Sulfate (Ventolin 0.083% Nebulizer Soln -) 1 amp NEB Q6H PRN PRN Reason: SHORT OF BREATH/WHEEZING Last Admin: 09/05/18 15:16 Dose: 1 amp Albuterol/Ipratropium (Duoneb -) 1 amp NEB RQID [facility] Last Admin: 09/07/18 11:35 Dose: 1 amp Amlodipine Besylate (Norvasc -) 10 mg PO DAILY [facility] Last Admin: 09/07/18 11:21 Dose: 10 mg Atorvastatin Calcium (Lipitor -) 10 mg PO HS [facility] Last Admin: 09/06/18 22:08 Dose: 10 mg Brimonidine Tartrate (Alphagan 0.2% -) 1 drop OU BID [facility] Last Admin: 09/07/18 11:21 Dose: 1 drop Losartan Potassium (Cozaar -) 25 mg PO DAILY [facility] Last Admin: 09/07/18 11:21 Dose: 25 mg Methylprednisolone Sodium Succinate (Solu-Medrol -) 40 mg IVPUSH BID [facility] Timolol Maleate (Timoptic 0.5%) 1 drop OU BID [facility] Last Admin: 09/07/18 11:20 Dose: 1 drop - Objective Vital Signs: Vital Signs Temperature 98.6 F 09/07/18 10:00 Pulse Rate 75 09/07/18 10:00 Respiratory Rate 22 H 09/07/18 10:00 Blood Pressure 129/80 09/07/18 10:00 O2 Sat by Pulse Oximetry (%) 94 L 09/07/18 09:00 Constitutional: Yes: Well Nourished, Calm Eyes: Yes: WNL HENT: Yes: WNL Neck: Yes: WNL Cardiovascular: Yes: Regular Rate and Rhythm, S1, S2 Respiratory: Yes: Diminished, Rales (FEW SCATTERED DAVID WHEEZES), Wheezes Gastrointestinal: Yes: Normal Bowel Sounds, Soft Extremities: Yes: WNL Edema: No Labs: CBC, BMP 09/07/18 06:30 09/07/18 06:30 INR, PTT INR 1.10 (0.83-1.09) H 09/04/18 16:00 Problem List - Problems (1) Acute on chronic respiratory failure with hypercapnia Code(s): J96.22 - ACUTE AND CHRONIC RESPIRATORY FAILURE WITH HYPERCAPNIA (2) COPD exacerbation Code(s): J44.1 - CHRONIC OBSTRUCTIVE PULMONARY DISEASE W (ACUTE) EXACERBATION (3) HTN (hypertension) Code(s): I10 - ESSENTIAL (PRIMARY) HYPERTENSION (4) Shortness of breath Code(s): R06.02 - SHORTNESS OF BREATH (5) Pulmonary HTN Code(s): I27.20 - PULMONARY HYPERTENSION, UNSPECIFIED (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 (8) Tobacco abuse Code(s): Z72.0 - TOBACCO USE (9) Tobacco abuse counseling Code(s): Z71.6 - TOBACCO ABUSE COUNSELING Assessment/Plan IMP ACUTE ON CHRONIC HYPOXEMIC RESPIRATORY FAILURE IMPROVING COPD EXACERBATION IMPROVING PULMONARY HTN SECONDARY ERYTHROCYTOSIS LIKELY SECONDARY TO CHRONIC HYPOXEMIA PROSTATE CA S/P RT HTN TOBACCO ABUSE LIKELY OSAS PLAN O2 INHALED BRONCHODILATORS STEROIDS DVT PROPHYLAXIS SMOKING CESSATION COUNSELED SLEEP STUDIES OUTPATIENT DR PALACIOS Problem List - Problems (1) Acute on chronic respiratory failure with hypercapnia Code(s): J96.22 - ACUTE AND CHRONIC RESPIRATORY FAILURE WITH HYPERCAPNIA (2) COPD exacerbation Code(s): J44.1 - CHRONIC OBSTRUCTIVE PULMONARY DISEASE W (ACUTE) EXACERBATION (3) HTN (hypertension) Code(s): I10 - ESSENTIAL (PRIMARY) HYPERTENSION (4) Shortness of breath Code(s): R06.02 - SHORTNESS OF BREATH (5) Pulmonary HTN Code(s): I27.20 - PULMONARY HYPERTENSION, UNSPECIFIED (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 (8) Tobacco abuse Code(s): Z72.0 - TOBACCO USE (9) Tobacco abuse counseling Code(s): Z71.6 - TOBACCO ABUSE COUNSELING
--- NOTE | 2018-09-07 14:18 | DS ---
Physical Examination Vital Signs: Vital Signs Temperature 98.6 F 09/07/18 10:00 Pulse Rate 75 09/07/18 10:00 Respiratory Rate 22 H 09/07/18 10:00 Blood Pressure 129/80 09/07/18 10:00 O2 Sat by Pulse Oximetry (%) 94 L 09/07/18 09:00 Constitutional: Yes: Calm Cardiovascular: Yes: Regular Rate and Rhythm, S1, S2 Respiratory: Yes: Diminished Gastrointestinal: Yes: Normal Bowel Sounds, Soft Neurological: Yes: Alert, Oriented Labs: CBC, BMP 09/07/18 06:30 09/07/18 06:30 Discharge Summary Reason For Visit: SOB/ACUTE EXACERBATION OF CHRONIC OBSTRUCTIVE Current Active Problems Abnormal EKG (Acute) Acute on chronic respiratory failure with hypercapnia (Acute) COPD exacerbation (Acute) Glaucoma (Acute) HTN (hypertension) (Acute) Prostate CA (Acute) Pulmonary HTN (Acute) Secondary erythrocytosis (Acute) Shortness of breath (Acute) Tobacco abuse (Acute) Tobacco abuse counseling (Acute) Hospital Course: Admission Chief Complaint: worsening SOB History of Present Illness: Patient is a 68 y/o male with past medical history of HTN, HLD, COPD, Prostate CA (last radiation treatment was today). Patient complain of worsening SOB for 4-5 month period. Patient was in PMD office today and was noted with SpO2 in 80s and was instructed to come to [facility] ER for further evaluation. copd exacerbation started on iv steroids and nebulizer also on oxygen seen by pulm and hematology and to continue RT as outpatient - Instructions Diet, Activity, Other Instructions: sleep study and PFT as outpatient continue with RT as outpatient Referrals: Rehan Parker MD [Primary Care Provider] - Kashif Segura MD [Staff Physician] - 2 Weeks - Home Medications Comprehensive Discharge Medication List: Ambulatory Orders Amlodipine Besylate [Norvasc -] 10 mg PO DAILY 09/04/18 Losartan Potassium 0 mg PO DAILY 09/04/18
[2018-09-07] MEDS: ATORVASTATIN CA 10 MG TABLET (FP) PO SCH (21:25)
[2018-09-08] MEDS: ALBUTEROL SO4 2.5/IPRATROPIUM 0.5 INH SOL 3 ML VIAL.NEB. NEB SCH ×4 (08:10→22:46)
[2018-09-08 09:03] LABS: HEMOGLOBIN 17.6 GM/dL (11.7-16.9); MCHC 32.5 g/dl (32.0-35.9); MEAN CELL VOLUME 104.4 fl (80-96); MEAN PLT VOLUME 8.7 fl (7.5-11.1); MONO % 5.2 % (3.8-10.2); NEUT % 91.8 % (42.8-82.8); PLATELET COUNT 175 K/MM3 (134-434); RBC 5.17 M/mm3 (4.00-5.60); RDW 14.6 % (11.9-15.9); WHITE BLOOD COUNT 7.8 K/mm3 (4.0-10.0)
[2018-09-08 09:54] LABS: ALK PHOS 77 U/L (45-117); ANION GAP 5 MMOL/L (8-16); BILIRUBIN,TOTAL 0.2 mg/dL (0.2-1); BLOOD UREA NITROGEN 14 mg/dL (7-18); CALCIUM 8.5 mg/dL (8.5-10.1); CHLORIDE 101 mmol/L (98-107); CO2 35 mmol/L (21-32); CREATININE 0.7 mg/dL (0.55-1.3); GLUCOSE,RANDOM 105 mg/dL (74-106); POTASSIUM 4.9 mmol/L (3.5-5.1); SGOT/AST 13 U/L (15-37); SGPT/ALT 30 U/L (13-61); SODIUM 141 mmol/L (136-145); TOT PROT 6.5 g/dl (6.4-8.2)
[2018-09-08 10:56] LABS: ANISOCYTOSIS 0; MACROCYTOSIS 1+; PLATELET ESTIMATE NORMAL
[2018-09-08] MEDS: LOSARTAN POTASSIUM 25 MG TABLET PO SCH (11:56)
[2018-09-08] MEDS: methylPREDNISolone NA SUCC 40 MG/1 ML VIAL IVPUSH SCH ×2 (11:56→22:52)
[2018-09-08] MEDS: amLODIPine BESYLATE 10 MG TABLET (FP) PO SCH (11:56)
[2018-09-08] MEDS: TIMOLOL 0.5% OPHTHALMIC SOL 5 ML BOTTLE OU SCH ×2 (11:57→22:52)
[2018-09-08] MEDS: BRIMONIDINE TARTRATE 0.2% OPHTHALMIC 5 ML BOTTLE OU SCH ×2 (11:57→22:51)
--- NOTE | 2018-09-08 13:38 | PN ---
Progress Note (short form) - Note Progress Note: PULMONARY States breathing is better. Less cough and wheezing. Vital Signs Period Temp Pulse Resp BP Sys/Beck Pulse Ox Last 24 Hr 97.3 F-98.4 F 78-87 20-20 120-143/73-90 95 Gen: NAD at rest Heart: RRR Lung: decreased air entry, scattered wheezes Abd: soft, nontender Ext: no edema CBC, BMP 09/08/18 07:30 09/08/18 07:30 Active Medications Albuterol Sulfate (Ventolin 0.083% Nebulizer Soln -) 1 amp NEB Q6H PRN PRN Reason: SHORT OF BREATH/WHEEZING Last Admin: 09/05/18 15:16 Dose: 1 amp Albuterol/Ipratropium (Duoneb -) 1 amp NEB RQID [facility] Last Admin: 09/08/18 12:23 Dose: 1 amp Amlodipine Besylate (Norvasc -) 10 mg PO DAILY [facility] Last Admin: 09/08/18 11:56 Dose: 10 mg Atorvastatin Calcium (Lipitor -) 10 mg PO HS [facility] Last Admin: 09/07/18 21:25 Dose: 10 mg Brimonidine Tartrate (Alphagan 0.2% -) 1 drop OU BID [facility] Last Admin: 09/08/18 11:57 Dose: 1 drop Losartan Potassium (Cozaar -) 25 mg PO DAILY [facility] Last Admin: 09/08/18 11:56 Dose: 25 mg Methylprednisolone Sodium Succinate (Solu-Medrol -) 40 mg IVPUSH BID [facility] Last Admin: 09/08/18 11:56 Dose: 40 mg Timolol Maleate (Timoptic 0.5%) 1 drop OU BID [facility] Last Admin: 09/08/18 11:57 Dose: 1 drop A/P Acute on Chronic Hypoxic Respiratory Failure Acute COPD Exacerbation Pulmonary HTN Polycythemia likely due to Chronic Hypoxia HTN Smoker Suspect DU - agree with medrol taper - inhaled bronchodilators - O2 to keep SpO2 >90% - smoking cessation - outpt PFTs, PSG - DVT prophylaxis
--- NOTE | 2018-09-08 14:58 | PN ---
Progress Note, Physician Chief Complaint: COPD exacerbation History of Present Illness: NAD breathing better but SOB on exertion - Current Medication List Current Medications: Active Medications Albuterol Sulfate (Ventolin 0.083% Nebulizer Soln -) 1 amp NEB Q6H PRN PRN Reason: SHORT OF BREATH/WHEEZING Last Admin: 09/05/18 15:16 Dose: 1 amp Albuterol/Ipratropium (Duoneb -) 1 amp NEB RQID [facility] Last Admin: 09/08/18 12:23 Dose: 1 amp Amlodipine Besylate (Norvasc -) 10 mg PO DAILY [facility] Last Admin: 09/08/18 11:56 Dose: 10 mg Atorvastatin Calcium (Lipitor -) 10 mg PO HS [facility] Last Admin: 09/07/18 21:25 Dose: 10 mg Brimonidine Tartrate (Alphagan 0.2% -) 1 drop OU BID [facility] Last Admin: 09/08/18 11:57 Dose: 1 drop Losartan Potassium (Cozaar -) 25 mg PO DAILY [facility] Last Admin: 09/08/18 11:56 Dose: 25 mg Methylprednisolone Sodium Succinate (Solu-Medrol -) 40 mg IVPUSH BID [facility] Last Admin: 09/08/18 11:56 Dose: 40 mg Timolol Maleate (Timoptic 0.5%) 1 drop OU BID [facility] Last Admin: 09/08/18 11:57 Dose: 1 drop - Objective Vital Signs: Vital Signs Temperature 97.3 F L 09/08/18 06:00 Pulse Rate 78 09/08/18 06:00 Respiratory Rate 20 09/08/18 06:00 Blood Pressure 143/73 09/08/18 06:00 O2 Sat by Pulse Oximetry (%) 95 09/07/18 21:00 Constitutional: Yes: Well Nourished, No Distress, Calm Cardiovascular: Yes: Regular Rate and Rhythm Respiratory: Yes: Regular, On Nasal O2, SOB on Exertion Gastrointestinal: Yes: Normal Bowel Sounds, Soft, Abdomen, Obese Musculoskeletal: Yes: WNL Extremities: Yes: WNL Edema: No Peripheral Pulses WNL: Yes Neurological: Yes: Alert, Oriented Psychiatric: Yes: Alert, Oriented Labs: CBC, BMP 09/08/18 07:30 09/08/18 07:30 INR, PTT INR 1.10 (0.83-1.09) H 01/15/19 16:00 Problem List - Problems (1) COPD exacerbation Assessment/Plan: -Seen by pulmonary -IV medrol tapering dose -Pre and post ambulation O2 Code(s): J44.1 - CHRONIC OBSTRUCTIVE PULMONARY DISEASE W (ACUTE) EXACERBATION (2) HTN (hypertension) Assessment/Plan: -Continue amlodipine and losartan Code(s): I10 - ESSENTIAL (PRIMARY) HYPERTENSION Assessment/Plan see problem list
[2018-09-08] MEDS: ATORVASTATIN CA 10 MG TABLET (FP) PO SCH (22:52)
[2018-09-09] MEDS: ALBUTEROL SO4 2.5/IPRATROPIUM 0.5 INH SOL 3 ML VIAL.NEB. NEB SCH ×3 (08:24→16:40)
[2018-09-09] MEDS: BRIMONIDINE TARTRATE 0.2% OPHTHALMIC 5 ML BOTTLE OU SCH (11:32)
[2018-09-09] MEDS: TIMOLOL 0.5% OPHTHALMIC SOL 5 ML BOTTLE OU SCH (11:32)
[2018-09-09] MEDS: LOSARTAN POTASSIUM 25 MG TABLET PO SCH (11:32)
[2018-09-09] MEDS: amLODIPine BESYLATE 10 MG TABLET (FP) PO SCH (11:32)
[2018-09-09] MEDS: methylPREDNISolone NA SUCC 40 MG/1 ML VIAL IVPUSH SCH (11:32)
--- NOTE | 2018-09-09 11:35 | PN ---
Progress Note (short form) - Note Progress Note: PULMONARY Breathing continues to improve. Less cough and wheezing. Vital Signs Period Temp Pulse Resp BP Sys/Beck Pulse Ox Last 24 Hr 97.7 F-98.6 F 84-101 20-22 120-128/73-76 95-95 Gen: NAD at rest Heart: RRR Lung: better air entry, scattered wheezes Abd: soft, nontender Ext: no edema CBC, BMP 09/08/18 07:30 09/08/18 07:30 Active Medications Albuterol Sulfate (Ventolin 0.083% Nebulizer Soln -) 1 amp NEB Q6H PRN PRN Reason: SHORT OF BREATH/WHEEZING Last Admin: 09/05/18 15:16 Dose: 1 amp Albuterol/Ipratropium (Duoneb -) 1 amp NEB RQID [facility] Last Admin: 09/09/18 08:24 Dose: 1 amp Amlodipine Besylate (Norvasc -) 10 mg PO DAILY [facility] Last Admin: 09/09/18 11:32 Dose: 10 mg Atorvastatin Calcium (Lipitor -) 10 mg PO HS [facility] Last Admin: 09/08/18 22:52 Dose: 10 mg Brimonidine Tartrate (Alphagan 0.2% -) 1 drop OU BID [facility] Last Admin: 09/09/18 11:32 Dose: 1 drop Losartan Potassium (Cozaar -) 25 mg PO DAILY [facility] Last Admin: 09/09/18 11:32 Dose: 25 mg Methylprednisolone Sodium Succinate (Solu-Medrol -) 40 mg IVPUSH BID [facility] Last Admin: 09/09/18 11:32 Dose: 40 mg Timolol Maleate (Timoptic 0.5%) 1 drop OU BID [facility] Last Admin: 09/09/18 11:32 Dose: 1 drop A/P Acute on Chronic Hypoxic Respiratory Failure Acute COPD Exacerbation Pulmonary HTN Polycythemia likely due to Chronic Hypoxia HTN Smoker Suspect DU - medrol taper, can likely change to PO prednisone - inhaled bronchodilators - O2 to keep SpO2 >90% - smoking cessation - outpt PFTs, PSG - DVT prophylaxis
--- NOTE | 2018-09-09 12:17 | PN ---
Progress Note, Physician Chief Complaint: COPD exacerbation History of Present Illness: NAD breathing better but SOB on exertion Pre and post exercise O2 down to 87% on Room air at rest Will need home O2 - Current Medication List Current Medications: Active Medications Albuterol Sulfate (Ventolin 0.083% Nebulizer Soln -) 1 amp NEB Q6H PRN PRN Reason: SHORT OF BREATH/WHEEZING Last Admin: 09/05/18 15:16 Dose: 1 amp Albuterol/Ipratropium (Duoneb -) 1 amp NEB RQID [facility] Last Admin: 09/09/18 11:47 Dose: 1 amp Amlodipine Besylate (Norvasc -) 10 mg PO DAILY [facility] Last Admin: 09/09/18 11:32 Dose: 10 mg Atorvastatin Calcium (Lipitor -) 10 mg PO HS [facility] Last Admin: 09/08/18 22:52 Dose: 10 mg Brimonidine Tartrate (Alphagan 0.2% -) 1 drop OU BID [facility] Last Admin: 09/09/18 11:32 Dose: 1 drop Losartan Potassium (Cozaar -) 25 mg PO DAILY [facility] Last Admin: 09/09/18 11:32 Dose: 25 mg Methylprednisolone Sodium Succinate (Solu-Medrol -) 40 mg IVPUSH BID [facility] Last Admin: 09/09/18 11:32 Dose: 40 mg Timolol Maleate (Timoptic 0.5%) 1 drop OU BID [facility] Last Admin: 09/09/18 11:32 Dose: 1 drop - Objective Vital Signs: Vital Signs Temperature 97.7 F 09/08/18 18:30 Pulse Rate 84 09/08/18 22:00 Respiratory Rate 20 09/08/18 22:00 Blood Pressure 120/75 09/08/18 22:00 O2 Sat by Pulse Oximetry (%) 95 09/08/18 21:00 Constitutional: Yes: Well Nourished, No Distress, Calm Cardiovascular: Yes: Regular Rate and Rhythm Respiratory: Yes: Regular, On Nasal O2, SOB on Exertion Gastrointestinal: Yes: Normal Bowel Sounds, Soft, Abdomen, Obese Musculoskeletal: Yes: WNL Extremities: Yes: WNL Edema: No Peripheral Pulses WNL: Yes Neurological: Yes: Alert, Oriented Psychiatric: Yes: Alert, Oriented Labs: CBC, BMP 09/08/18 07:30 09/08/18 07:30 INR, PTT INR 1.10 (0.83-1.09) H 09/04/18 16:00 Problem List - Problems (1) COPD exacerbation Assessment/Plan: -Seen by pulmonary -IV medrol tapering dose change to PO -Pre and post ambulation O2 reviewed Code(s): J44.1 - CHRONIC OBSTRUCTIVE PULMONARY DISEASE W (ACUTE) EXACERBATION (2) HTN (hypertension) Assessment/Plan: -Continue amlodipine and losartan Code(s): I10 - ESSENTIAL (PRIMARY) HYPERTENSION Assessment/Plan see problem list
[2018-09-09 14:09] VITALS: BP 102/77; PULSE 83; TEMP 98.1
[2018-09-09] MEDS ORDERED: predniSONE 20 MG TABLET (UD) PO SCH (22:00)
== END 2018-09-09 18:00 | disposition home or self-care (01) | DRG 189 ==
LOC: JER 14:57 → JERBED 16:38 → J5S 09-05 13:17
PROVIDERS: ADMIT Family Medicine; ATTEND Family Medicine
DX: J96.21 Acute and chronic respiratory failure with hypoxia (principal); J96.22 Acute and chronic respiratory failure with hypercapnia; J44.1 Chronic obstructive pulmonary disease with (acute) exacerbation; I10 Essential (primary) hypertension; E78.5 Hyperlipidemia, unspecified; C61 Malignant neoplasm of prostate; R94.31 Abnormal electrocardiogram [ECG] [EKG]; I27.20 Pulmonary hypertension, unspecified; D75.1 Secondary polycythemia; G47.33 Obstructive sleep apnea (adult) (pediatric); H40.9 Unspecified glaucoma
CPT/HCPCS: 36415; 36600; 71045-TC-FY; 71250-TC; 80053; 80061; 82550; 82803; 83721; 84484; 85025; 85027; 85610; 87040; 90670; 90688; 93005; 93010; 93306-TC; 94640; 94761; 99284-25; 99285-25; G0008; G0009

== ENCOUNTER 2018-11-21 12:00 | Emergency (ER) | payer OTHER ==
[2018-11-21 12:17] VITALS: BMI 28.3
--- NOTE | 2018-11-21 12:55 | PDOC ---
History of Present Illness - General Chief Complaint: Revisit, Lab Variance Stated Complaint: SENT BY PCP - History of Present Illness Initial Comments: The pt is a 68M w/ a history of HTN, HLD, glaucoma, COPD on 2L NC at home, and prostate cancer who presents from his Urologist's office for evaluation 2/2 findings of an aortic thrombus on CT. The pt denies having any acute complaints today/recently. Upon further questioning, the patient endorses having leg 'heaviness' with walking greater than 1 block and uphill for 1/2 a block. Today, the pt denies any leg pain, chest pain, or changes in sensation. Denies ever feeling that his feet are cold. Denies history of DVT, IA, or stroke. Denies AC use 11/21/18 18:25 Past History - Past Medical History Allergies/Adverse Reactions: Allergies Allergy/AdvReac Type Severity Reaction Status Date / Time No Known Allergies Allergy Verified 11/21/18 12:09 Home Medications: Ambulatory Orders Amlodipine Besylate [Norvasc -] 10 mg PO DAILY #30 tablet 09/08/18 Atorvastatin Ca [Lipitor] 10 mg PO HS #30 tablet 09/08/18 Brimonidine Tartrate [Alphagan 0.2% -] 1 drop OU BID #1 bot 09/08/18 Losartan Potassium [Cozaar -] 25 mg PO DAILY #30 tablet 09/08/18 Timolol 0.5% [Timoptic 0.5%] 1 drop OU BID #1 bot 09/08/18 Cancer: Yes (prostate on IRT) COPD: Yes HTN: Yes - Surgical History Appendectomy: Yes - Immunization History Immunization Up to Date: Yes - Suicide/Smoking/Psychosocial Hx Smoking History: Never smoked Have you smoked in the past 12 months: No Information on smoking cessation initiated: No Hx Alcohol Use: No Drug/Substance Use Hx: No Substance Use Type: None Hx Substance Use Treatment: No Review of Systems - Review of Systems Able to Perform ROS?: Yes Comments:: GENERAL/CONSTITUTIONAL: No fever or chills. No weakness HEAD, EYES, EARS, NOSE AND THROAT: No change in vision or hearing. No sore throat CARDIOVASCULAR: No chest pain or shortness of breath RESPIRATORY: +chronic SOB and on home O2 GASTROINTESTINAL: No nausea, vomiting, diarrhea or constipation GENITOURINARY: No dysuria, frequency, or change in urination MUSCULOSKELETAL: No joint or muscle swelling or pain. No neck or back pain SKIN: No rash NEUROLOGIC: No headache, vertigo, loss of consciousness, or change in strength/ sensation ENDOCRINE: No increased thirst. No abnormal weight change ALLERGIC/IMMUNOLOGIC: No hives or skin allergy 11/21/18 12:54 Is the patient limited Luxem[place]ish proficient: No *Physical Exam - Vital Signs Last Vital Signs Temp Pulse Resp BP Pulse Ox 98.2 F 95 H 16 128/78 95 11/21/18 12:11/21/18 12:11/21/18 12:11/21/18 12:11/21/18 12:45 - Physical Exam Comments: GENERAL: Awake, alert, and oriented to person/place/time, in no acute distress HEAD: No signs of trauma, normocephalic, atraumatic EYES: PERRLA, EOMI, sclera anicteric, conjunctiva clear ENT: Hearing grossly normal, nares patent, oropharynx clear without exudates. Moist mucosa LUNGS: No distress, speaks full sentences, clear to auscultation bilaterally, on 2L NC (on O2 at home) HEART: Regular rate and rhythm, normal S1 and S2, no murmurs appreciated ABDOMEN: Soft, nontender, normoactive bowel sounds. No guarding, no rebound. EXTREMITIES: Radial pulses 2+ b/l; LLE palpable PT and DP; RLE dopplerable PT signal no DP NEUROLOGICAL: Cranial nerves II through XII grossly intact. Normal speech, sensation intact to light touch b/l throughout SKIN: Warm, Dry 11/21/18 12:54 ED Treatment Course - LABORATORY CBC & Chemistry Diagram: 11/21/18 13:55 11/21/18 13:55 Medical Decision Making - Medical Decision Making The pt is a 68M w/ a history of HTN, COPD (2L NC at home), prostate cancer, HLD who presents for evaluation for findings of aortic thrombus/BLE thrombus on CT ED Course Labs sent Lytes wnl No BRIGIDA LFTs wnl Case discussed w/ Dr. Hills -Thrombus chronic, and pt w/o acute symptoms -Plan for outpt f/u Dr. Huitron updated concerning findings Plan for D/C w/ Cardiology and Vascular f/u Discharge instructions and return precautions given Pt in agreement and verbalized understanding Dispo:home 11/21/18 18:29 *DC/Admit/Observation/Transfer Diagnosis at time of Disposition: Thrombus of aorta, Thrombosis of both lower extremities HTN (hypertension) Qualifiers: Hypertension type: unspecified Qualified Code(s): I10 - Essential (primary) hypertension - Discharge Dispostion Disposition: HOME Condition at time of disposition: Stable Decision to Admit order: No - Referrals Referrals: Kin Fuller MD [Staff Physician] - Meet Hills MD [Non Staff, Medical] - - Patient Instructions Printed Discharge Instructions: DI for Peripheral Vascular (Arterial) Disease Additional Instructions: You were seen in the Emergency Department for evaluation of thrombus in your aorta and both lower extremities. Review the handout provided at discharge. Follow up with the referrals given for Cardiology and Vascular Surgery. Also follow up with your primary care provider. Return to the Emergency Department if you have changes in sensation of your lower extremities, you note coolness of you legs, increased pain, chest pain, worsening symptoms, or any new/ concerning symptoms. - Post Discharge Activity Forms/Work/School Notes: Back to Work
--- NOTE | 2018-11-21 13:25 | PDOC ---
Attending Attestation - HPI HPI: 11/21/18 15:51 Patient is a 68 year old male with significant past medical history of HTN, COPD , who presents to the ED with complaints of blood clot in leg. Patient reports seeing his urologist and had an abdominal CT conducted which showed an arterial thrombosis, prompting his physician to advise him to come into the ED for further evaluation. He reports experiencing no pain when walking, but states his legs feel heavy after a block off walking. Denies chest pain, sob. Denies nausea, vomiting. Denies feves, chills. Denies contact with sick individuals, out of state travelling. Allergies: NKDA Social history: Current alcohol use. Current marijuana use. No smoking. Surgical history: Tonsillectomy, PMD: None Urologist: Dr. Jon <Rickey Ruiz - Last Filed: 11/21/18 15:51> - Resident Resident Name: Flip Pedrazaan - ED Attending Attestation I have performed the following: I have examined & evaluated the patient, The case was reviewed & discussed with the resident, I agree w/resident's findings & plan, Exceptions are as noted - Physicial Exam PE: 11/21/18 15:03 GENERAL: The patient is in no acute distress, on supplemental O2, A&O x 3. ENT: Ears normal, nares patent, oropharynx clear without exudates. Moist mucous membranes. NECK: Normal range of motion, supple LUNGS: Breath sounds equal, clear to auscultation bilaterally. No wheezes, and no crackles. HEART:Regular rate and rhythm, normal S1 and S2 without murmur, rub or gallop. ABDOMEN: Soft, nontender, normoactive bowel sounds. EXTREMITIES: Normal range of motion, no edema. (2+) DP/PT left foot No palpable DP/PT right foot Right foot warm, cap refill < 2 sec, sensation in tact NEUROLOGICAL: Cranial nerves II through XII grossly intact. Normal speech. No focal neurological deficits. SKIN: Warm, Dry, normal turgor, no rashes or lesions noted. - Medical Decision Making 11/21/18 13:23 68 yo M sent to the ER due to abn CT performed as an outpatient which demonstrates arterial thrombosis (aorta, Common femoral, SFA) Pt reports "heaviness" NO PAIN in the legs after walking 1 block (or 1/2 block if going up a hill), foot not cold, no discoloration CT pelvis from 2017 demonstrated thrombus in the aorta Based on this, findings see chronic Twelve-lead EKG was performed and reviewed by me. There is normal sinus rhythm with a normal rate. The axis is normal. The intervals are normal. There are no ST or T wave abnormalities. Impression: Normal twelve-lead EKG 11/21/18 15:04 11/21/18 15:09 Laboratory Tests 11/21/18 11/21/18 11/21/18 13:55 13:55 13:55 WBC 4.5 Hgb 15.1 Hct 46.8 Plt Count 183 INR 1.00 BUN 9 Creatinine 0.[address] Hills He recommended discharge with outpatient follow up Clinical impression: Chronic arterial thrombus, initial presentation <Felisa English - Last Filed: 11/24/18 13:14>
[2018-11-21] MEDS ORDERED: HEPARIN NA (PORCINE) 5,000 UNITS/ML 1ML VIAL IVPUSH PRN ×2 (13:34)
[2018-11-21] MEDS ORDERED: HEPARIN - 25,000 UNIT in SODIUM CHLORIDE 495 ML IV SCH (13:45)
[2018-11-21] MEDS ORDERED: HEPARIN INFUSION - 25,000 UNITS/500 ML INFUS.BAG IVPB ONE (13:47)
[2018-11-21 14:00] LABS: HEMATOCRIT 46.8 % (35.4-49); HEMOGLOBIN 15.1 GM/dL (11.7-16.9); MCH 32.2 pg (25.7-33.7); MCHC 32.3 g/dl (32.0-35.9); MEAN CELL VOLUME 99.9 fl (80-96); MEAN PLT VOLUME 7.8 fl (7.5-11.1); PLATELET COUNT 183 K/MM3 (134-434); RBC 4.69 M/mm3 (4.00-5.60); RDW 13.9 % (11.9-15.9); WHITE BLOOD COUNT 4.5 K/mm3 (4.0-10.0)
[2018-11-21 14:19] LABS: PROTHROMBIN TIME (PATIENT) 11.8 SEC (9.7-13.0)
[2018-11-21 14:22] LABS: ACTIVATED PTT 32.8 SECONDS (25.2-36.5)
[2018-11-21 14:26] LABS: ALBUMIN 3.5 g/dl (3.4-5.0); ALK PHOS 66 U/L (45-117); BILIRUBIN,TOTAL 0.4 mg/dL (0.2-1); BLOOD UREA NITROGEN 9 mg/dL (7-18); CHLORIDE 106 mmol/L (98-107); CO2 32 mmol/L (21-32); CREATININE 0.7 mg/dL (0.55-1.3); GLUCOSE,RANDOM 96 mg/dL (74-106); POTASSIUM 4.7 mmol/L (3.5-5.1); SGOT/AST 15 U/L (15-37); SGPT/ALT 29 U/L (13-61); SODIUM 140 mmol/L (136-145)
[2018-11-21 14:51] LABS: ANION GAP 3 MMOL/L (8-16)
[2018-11-21 15:25] VITALS: BP 132/89; PULSE 89; TEMP 98.3
--- NOTE | 2018-11-22 11:46 | EKG ---
Test Reason : Blood Pressure : / mmHG Vent. Rate : 087 BPM Atrial Rate : 087 BPM P-R Int : 142 ms QRS Dur : 086 ms QT Int : 366 ms P-R-T Axes : 055 034 049 degrees QTc Int : 440 ms NORMAL SINUS RHYTHM NORMAL ECG WHEN COMPARED WITH ECG OF 05-SEP-2018 15:12, NONSPECIFIC T WAVE ABNORMALITY NO LONGER EVIDENT IN INFERIOR LEADS T WAVE INVERSION NO LONGER EVIDENT IN ANTERIOR LEADS Confirmed by KULWANT CHILDRESS, TRISHA ([id number]) on 11/22/2018 11:46:16 AM Referred By: Confirmed By:TRISHA BLUM MD
== END 2018-11-21 16:14 | disposition home or self-care (01) ==
LOC: JER 12:00
DX: I74.10 Embolism and thrombosis of unspecified parts of aorta (principal); I82.403 Acute embolism and thrombosis of unspecified deep veins of lower extremity, bilateral; Z85.46 Personal history of malignant neoplasm of prostate; E78.5 Hyperlipidemia, unspecified; J44.9 Chronic obstructive pulmonary disease, unspecified; I10 Essential (primary) hypertension
CPT/HCPCS: 36415; 71045-TC-FY; 80053; 85027; 85610; 85730; 86850; 86900; 86901; 93005; 93010; 99283-25

== ENCOUNTER 2021-08-09 11:15 | Inpatient (IN) | payer OTHER ==
[2021-08-09] MEDS ORDERED: KETOROLAC TROMETHAMINE 15 MG/ML VIAL IVPUSH ONE (12:37)
[2021-08-09] MEDS ORDERED: KETOROLAC TROMETHAMINE 30 MG/1 ML VIAL ONE (13:04)
[2021-08-09 13:25] LABS: EOS % 3.6 % (0-4.5); HEMOGLOBIN 13.4 GM/dL (11.7-16.9); LYMPH % 16.2 % (8-40); MCH 31.3 pg (25.7-33.7); MCHC 32.8 g/dl (32.0-35.9); MEAN CELL VOLUME 95.3 fl (80-96); MONO % 11.2 % (3.8-10.2); PLATELET COUNT 189 10^3/uL (134-434); RDW 13.7 % (11.9-15.9); WHITE BLOOD COUNT 6.1 K/mm3 (4.0-10.0)
[2021-08-09 13:43] LABS: CALCIUM 8.9 mg/dL (8.5-10.1)
[2021-08-09 13:44] LABS: BLOOD UREA NITROGEN 11.1 mg/dL (7-18)
[2021-08-09 15:25] LABS: URINE APPEARANCE CLEAR; URINE BILIRUBIN NEGATIVE (NEGATIVE); URINE COLOR DK YELLOW; URINE GLUCOSE (UA) NEGATIVE (NEGATIVE); URINE KETONE TRACE (NEGATIVE); URINE LEUK ESTERASE NEGATIVE (NEGATIVE); URINE NITRITE NEGATIVE (NEGATIVE); URINE PROTEIN TRACE (NEGATIVE)
[2021-08-09] MEDS ORDERED: ACETAMINOPHEN 1000 MG/100 ML BAG IVPB ONE (16:40)
[2021-08-09] MEDS ORDERED: ACETAMINOPHEN INJECTION 100 ML IVPB ONE (16:44)
[2021-08-09] MEDS: DEXTROSE 5%-0.45% SALINE 1,000 ML IV SCH (22:04)
[2021-08-10] MEDS ORDERED: ACETAMINOPHEN 1000 MG/100 ML BAG IVPB PRN (01:52)
[2021-08-10] MEDS ORDERED: KETOROLAC TROMETHAMINE 15 MG/ML VIAL IVPUSH ONE (01:53)
[2021-08-10 10:03] LABS: BLOOD UREA NITROGEN 7.3 mg/dL (7-18); CALCIUM 8.8 mg/dL (8.5-10.1)
[2021-08-10 10:06] LABS: CREATININE 0.9 mg/dL (0.55-1.3)
[2021-08-10 10:08] LABS: BILIRUBIN,TOTAL 0.6 mg/dL (0.2-1); TOT PROT 6.8 g/dl (6.4-8.2)
[2021-08-10 10:22] LABS: HEMATOCRIT 41.6 % (35.4-49); HEMOGLOBIN 13.5 GM/dL (11.7-16.9); MCH 31.7 pg (25.7-33.7); MCHC 32.5 g/dl (32.0-35.9); MEAN CELL VOLUME 97.5 fl (80-96); MEAN PLT VOLUME 8.5 fl (7.5-11.1); PLATELET COUNT 192 10^3/uL (134-434); RBC 4.27 M/mm3 (4.00-5.60); RDW 13.7 % (11.9-15.9); WHITE BLOOD COUNT 5.9 K/mm3 (4.0-10.0)
[2021-08-10] MEDS ORDERED: FLU VACC QS2021-22(6MOS UP)/PF 60 MCG/0.5 ML SYRINGE IM ONE (11:35)
[2021-08-10 14:04] LABS: ANISOCYTOSIS 0; MACROCYTOSIS 0; PLATELET ESTIMATE NORMAL
[2021-08-11 09:54] LABS: BASO % 0.7 % (0-2.0); EOS % 1.4 % (0-4.5); HEMATOCRIT 42.2 % (35.4-49); HEMOGLOBIN 13.9 GM/dL (11.7-16.9); MCH 31.6 pg (25.7-33.7); MCHC 32.9 g/dl (32.0-35.9); MEAN CELL VOLUME 96.1 fl (80-96); MONO % 9.5 % (3.8-10.2); NEUT % 77.4 % (42.8-82.8); PLATELET COUNT 185 10^3/uL (134-434); RBC 4.39 M/mm3 (4.00-5.60); RDW 13.7 % (11.9-15.9); WHITE BLOOD COUNT 6.7 K/mm3 (4.0-10.0)
[2021-08-11 10:14] LABS: CALCIUM 8.8 mg/dL (8.5-10.1)
[2021-08-11 10:15] LABS: ALBUMIN 3.2 g/dl (3.4-5.0); BLOOD UREA NITROGEN 9.9 mg/dL (7-18)
[2021-08-11] MEDS ORDERED: LOSARTAN POTASSIUM 25 MG TABLET PO ONE (10:17)
[2021-08-11 10:18] LABS: CREATININE 0.8 mg/dL (0.55-1.3)
[2021-08-11 10:19] LABS: BILIRUBIN,TOTAL 0.4 mg/dL (0.2-1); TOT PROT 7.2 g/dl (6.4-8.2)
[2021-08-11] MEDS ORDERED: BRIMONIDINE TARTRATE 0.2% OPHTHALMIC 5 ML BOTTLE OD SCH (10:30)
[2021-08-11] MEDS: LOSARTAN POTASSIUM 25 MG TABLET PO SCH (10:54)
[2021-08-11] MEDS: amLODIPine BESYLATE 10 MG TABLET (FP) PO SCH (10:54)
[2021-08-11] MEDS: DEXTROSE 5%-0.45% SALINE 1,000 ML IV SCH (10:55)
[2021-08-11] MEDS: BRIMONIDINE TARTRATE 0.2% OPHTHALMIC 5 ML BOTTLE OU SCH ×2 (11:15→22:16)
[2021-08-11] MEDS: TIMOLOL 0.5% OPHTHALMIC SOL 5 ML BOTTLE OU SCH ×2 (11:25→22:16)
[2021-08-11] MEDS: ALBUTEROL SO4 HFA INHALER IH PRN (21:10)
[2021-08-11] MEDS: MINERAL OIL/PET HY-PHL TOPICAL OINTMENT 454 GM JAR TP SCH ×2 (22:16→22:19)
[2021-08-12] MEDS: traMADol HCL 50 MG TABLET PO PRN ×2 (06:14→14:43)
[2021-08-12] MEDS: DEXTROSE 5%-0.45% SALINE 1,000 ML IV SCH (08:14)
[2021-08-12] MEDS: LOSARTAN POTASSIUM 25 MG TABLET PO SCH (11:14)
[2021-08-12] MEDS: amLODIPine BESYLATE 10 MG TABLET (FP) PO SCH (11:15)
[2021-08-12] MEDS: BRIMONIDINE TARTRATE 0.2% OPHTHALMIC 5 ML BOTTLE OU SCH ×2 (11:16→22:26)
[2021-08-12] MEDS: TIMOLOL 0.5% OPHTHALMIC SOL 5 ML BOTTLE OU SCH ×2 (11:16→22:27)
[2021-08-12] MEDS: MINERAL OIL/PET HY-PHL TOPICAL OINTMENT 454 GM JAR TP SCH ×2 (11:18→22:26)
[2021-08-12] MEDS: GABAPENTIN 100 MG CAPSULE PO SCH ×2 (14:43→22:26)
[2021-08-12] MEDS: ALBUTEROL SO4 HFA INHALER IH PRN (15:52)
[2021-08-12] MEDS ORDERED: ALBUTEROL SO4 2.5/IPRATROPIUM 0.5 INH SOL 3 ML VIAL.NEB. NEB PRN (18:34)
[2021-08-12 20:17] LABS: BASO % 0.4 % (0-2.0); EOS % 2.6 % (0-4.5); HEMATOCRIT 42.7 % (35.4-49); HEMOGLOBIN 14.1 GM/dL (11.7-16.9); LYMPH % 7.5 % (8-40); MCH 31.5 pg (25.7-33.7); MEAN CELL VOLUME 95.2 fl (80-96); MEAN PLT VOLUME 7.6 fl (7.5-11.1); MONO % 8.8 % (3.8-10.2); NEUT % 80.7 % (42.8-82.8); PLATELET COUNT 181 10^3/uL (134-434); RBC 4.49 M/mm3 (4.00-5.60); RDW 13.5 % (11.9-15.9); WHITE BLOOD COUNT 7.7 K/mm3 (4.0-10.0)
[2021-08-12 20:38] LABS: CHLORIDE 96 mmol/L (98-107); SODIUM 137 mmol/L (136-145)
[2021-08-12 20:39] LABS: ALBUMIN 3.1 g/dl (3.4-5.0); ANION GAP 2 MMOL/L (8-16); BLOOD UREA NITROGEN 16.2 mg/dL (7-18); CALCIUM 8.8 mg/dL (8.5-10.1); CO2 38 mmol/L (21-32); GLUCOSE,RANDOM 137 mg/dL (74-106)
[2021-08-12 20:42] LABS: CREATININE 1.2 mg/dL (0.55-1.3); SGOT/AST 13 U/L (15-37); SGPT/ALT 31 U/L (13-61)
[2021-08-12 20:44] LABS: BILIRUBIN,TOTAL 0.2 mg/dL (0.2-1); TOT PROT 7.3 g/dl (6.4-8.2)
[2021-08-12 20:45] LABS: ALK PHOS 75 U/L (45-117)
[2021-08-13] MEDS: GABAPENTIN 100 MG CAPSULE PO SCH ×3 (06:33→21:19)
[2021-08-13] MEDS: LOSARTAN POTASSIUM 50 MG TABLET PO SCH (10:15)
[2021-08-13] MEDS: amLODIPine BESYLATE 10 MG TABLET (FP) PO SCH (10:15)
[2021-08-13] MEDS: TIMOLOL 0.5% OPHTHALMIC SOL 5 ML BOTTLE OU SCH ×2 (10:16→21:19)
[2021-08-13] MEDS: MINERAL OIL/PET HY-PHL TOPICAL OINTMENT 454 GM JAR TP SCH (10:16)
[2021-08-13] MEDS: BRIMONIDINE TARTRATE 0.2% OPHTHALMIC 5 ML BOTTLE OU SCH ×2 (10:16→21:19)
[2021-08-13] MEDS: traMADol HCL 50 MG TABLET PO PRN (13:47)
[2021-08-13] MEDS: ALBUTEROL SO4 HFA INHALER IH PRN (17:58)
[2021-08-14] MEDS: MINERAL OIL/PET HY-PHL TOPICAL OINTMENT 454 GM JAR TP SCH ×3 (01:42→21:46)
[2021-08-14] MEDS: traMADol HCL 50 MG TABLET PO PRN (05:32)
[2021-08-14] MEDS: GABAPENTIN 100 MG CAPSULE PO SCH ×3 (05:32→21:39)
[2021-08-14] MEDS: ALBUTEROL SO4 HFA INHALER IH PRN (05:35)
[2021-08-14 09:28] LABS: BASO % 0.7 % (0-2.0); EOS % 1.9 % (0-4.5); HEMATOCRIT 42.9 % (35.4-49); HEMOGLOBIN 14.1 GM/dL (11.7-16.9); LYMPH % 11.2 % (8-40); MCH 31.5 pg (25.7-33.7); MCHC 32.8 g/dl (32.0-35.9); MONO % 10.7 % (3.8-10.2); NEUT % 75.5 % (42.8-82.8); PLATELET COUNT 211 10^3/uL (134-434); RBC 4.47 M/mm3 (4.00-5.60); RDW 13.1 % (11.9-15.9); WHITE BLOOD COUNT 5.5 K/mm3 (4.0-10.0)
[2021-08-14 09:52] LABS: CALCIUM 8.9 mg/dL (8.5-10.1)
[2021-08-14 09:53] LABS: BLOOD UREA NITROGEN 13.1 mg/dL (7-18)
[2021-08-14 09:56] LABS: CREATININE 0.8 mg/dL (0.55-1.3)
[2021-08-14 09:57] LABS: BILIRUBIN,TOTAL 0.3 mg/dL (0.2-1); TOT PROT 7.1 g/dl (6.4-8.2)
[2021-08-14] MEDS: LOSARTAN POTASSIUM 50 MG TABLET PO SCH (10:40)
[2021-08-14] MEDS: amLODIPine BESYLATE 10 MG TABLET (FP) PO SCH (10:40)
[2021-08-14] MEDS: TIMOLOL 0.5% OPHTHALMIC SOL 5 ML BOTTLE OU SCH ×2 (10:42→21:40)
[2021-08-14] MEDS: BRIMONIDINE TARTRATE 0.2% OPHTHALMIC 5 ML BOTTLE OU SCH ×2 (10:44→21:40)
[2021-08-14] MEDS ORDERED: PT OWN MED DRAWER 7, Y5N ONE (21:38)
[2021-08-15] MEDS: GABAPENTIN 100 MG CAPSULE PO SCH ×4 (05:21→21:37)
[2021-08-15] MEDS: amLODIPine BESYLATE 10 MG TABLET (FP) PO SCH (11:07)
[2021-08-15] MEDS: TIMOLOL 0.5% OPHTHALMIC SOL 5 ML BOTTLE OU SCH ×2 (11:08→21:33)
[2021-08-15] MEDS: LOSARTAN POTASSIUM 50 MG TABLET PO SCH (11:08)
[2021-08-15] MEDS: BRIMONIDINE TARTRATE 0.2% OPHTHALMIC 5 ML BOTTLE OU SCH ×2 (11:09→21:33)
[2021-08-15] MEDS: MINERAL OIL/PET HY-PHL TOPICAL OINTMENT 454 GM JAR TP SCH ×2 (11:09→21:34)
[2021-08-15] MEDS: ALBUTEROL SO4 2.5/IPRATROPIUM 0.5 INH SOL 3 ML VIAL.NEB. NEB SCH ×2 (15:01→20:10)
[2021-08-16] MEDS: GABAPENTIN 100 MG CAPSULE PO SCH ×3 (05:40→21:22)
[2021-08-16] MEDS: ALBUTEROL SO4 2.5/IPRATROPIUM 0.5 INH SOL 3 ML VIAL.NEB. NEB SCH ×4 (07:20→20:16)
[2021-08-16] MEDS ORDERED: PT OWN MED DRAWER 7, Y5N ONE (09:46)
[2021-08-16] MEDS: LOSARTAN POTASSIUM 50 MG TABLET PO SCH (09:48)
[2021-08-16] MEDS: amLODIPine BESYLATE 10 MG TABLET (FP) PO SCH (09:48)
[2021-08-16] MEDS: MINERAL OIL/PET HY-PHL TOPICAL OINTMENT 454 GM JAR TP SCH ×2 (09:48→21:22)
[2021-08-16] MEDS: BRIMONIDINE TARTRATE 0.2% OPHTHALMIC 5 ML BOTTLE OU SCH ×2 (09:48→21:22)
[2021-08-16] MEDS: TIMOLOL 0.5% OPHTHALMIC SOL 5 ML BOTTLE OU SCH ×2 (09:49→21:23)
[2021-08-16 12:35] VITALS: BMI 33.5
[2021-08-16] MEDS: DOCUSATE SODIUM 100 MG CAPSULE (FP) PO SCH (13:24)
[2021-08-17] MEDS: traMADol HCL 50 MG TABLET PO PRN (02:39)
[2021-08-17] MEDS: GABAPENTIN 100 MG CAPSULE PO SCH ×3 (05:14→21:51)
[2021-08-17] MEDS: ALBUTEROL SO4 2.5/IPRATROPIUM 0.5 INH SOL 3 ML VIAL.NEB. NEB SCH ×4 (07:40→21:15)
[2021-08-17] MEDS ORDERED: POLYETHYLENE GLYCOL 3350 119 GM BTL PO SCH (10:00)
[2021-08-17] MEDS: LOSARTAN POTASSIUM 50 MG TABLET PO SCH (10:49)
[2021-08-17] MEDS: DOCUSATE SODIUM 100 MG CAPSULE (FP) PO SCH (10:49)
[2021-08-17] MEDS: amLODIPine BESYLATE 10 MG TABLET (FP) PO SCH (10:49)
[2021-08-17] MEDS: TIMOLOL 0.5% OPHTHALMIC SOL 5 ML BOTTLE OU SCH ×2 (10:58→21:51)
[2021-08-17] MEDS: BRIMONIDINE TARTRATE 0.2% OPHTHALMIC 5 ML BOTTLE OU SCH ×2 (10:58→21:50)
[2021-08-17] MEDS: MINERAL OIL/PET HY-PHL TOPICAL OINTMENT 454 GM JAR TP SCH ×2 (10:58→21:51)
[2021-08-17] MEDS: POLYETHYLENE GLYCOL (HEALTHYLAX) 3350 17 GM PACKET PO SCH (12:43)
[2021-08-17] MEDS ORDERED: PT OWN MED DRAWER 7, Y5N ONE (21:42)
[2021-08-18] MEDS: GABAPENTIN 100 MG CAPSULE PO SCH ×2 (05:24→13:52)
[2021-08-18] MEDS: ALBUTEROL SO4 HFA INHALER IH PRN (06:32)
[2021-08-18] MEDS: ALBUTEROL SO4 2.5/IPRATROPIUM 0.5 INH SOL 3 ML VIAL.NEB. NEB SCH ×3 (08:03→16:29)
[2021-08-18] MEDS: LOSARTAN POTASSIUM 50 MG TABLET PO SCH (11:09)
[2021-08-18] MEDS: amLODIPine BESYLATE 10 MG TABLET (FP) PO SCH (11:09)
[2021-08-18] MEDS: MINERAL OIL/PET HY-PHL TOPICAL OINTMENT 454 GM JAR TP SCH (11:10)
[2021-08-18] MEDS: BRIMONIDINE TARTRATE 0.2% OPHTHALMIC 5 ML BOTTLE OU SCH (11:10)
[2021-08-18] MEDS: DOCUSATE SODIUM 100 MG CAPSULE (FP) PO SCH (11:10)
[2021-08-18] MEDS: POLYETHYLENE GLYCOL (HEALTHYLAX) 3350 17 GM PACKET PO SCH (11:10)
[2021-08-18] MEDS: TIMOLOL 0.5% OPHTHALMIC SOL 5 ML BOTTLE OU SCH (11:11)
[2021-08-18] MEDS: traMADol HCL 50 MG TABLET PO PRN (15:56)
[2021-08-18 18:39] VITALS: BP 129/83; PULSE 89; TEMP 98
== END 2021-08-18 18:54 | DRG 300 ==
LOC: JER 11:15 → JERBED 18:32 → J5S 08-10 01:36
PROVIDERS: ADMIT Internal Medicine; ATTEND Family Medicine
DX: I74.5 Embolism and thrombosis of iliac artery (principal); J98.11 Atelectasis; J96.11 Chronic respiratory failure with hypoxia; E78.5 Hyperlipidemia, unspecified; H40.9 Unspecified glaucoma; I10 Essential (primary) hypertension; J44.9 Chronic obstructive pulmonary disease, unspecified; I27.20 Pulmonary hypertension, unspecified; M47.816 Spondylosis without myelopathy or radiculopathy, lumbar region; I73.9 Peripheral vascular disease, unspecified; M54.50 Low back pain, unspecified; E66.9 Obesity, unspecified; Z68.33 Body mass index [BMI] 33.0-33.9, adult; Z72.0 Tobacco use
CPT/HCPCS: 36415; 71045-TC-FY; 71046-TC-FY; 72132-TC; 75635-TC; 80048; 80053; 80061; 81003; 84484; 85025; 87086; 90686; 93005; 93010; 94010; 94640; 97116-GP; 97162-GP; 99285-25; C9803; G0008; J0131; Q9967; U0003; U0005

== ENCOUNTER 2021-10-29 04:19 | Day surgery (SDC) | payer OTHER ==
[2021-10-28 12:18] VITALS: BMI 33.1
[2021-10-29] MEDS ORDERED: LIDOCAINE HCL/PF 1% SDV 5ML VIAL ONE (07:08)
[2021-10-29] MEDS ORDERED: BUPIVACAINE HCL/PF 0.75% 10 ML VIAL ONE (07:08)
[2021-10-29] MEDS ORDERED: BUPIVACAINE HCL/PF 0.75% 10 ML VIAL NR ONE ×2 (08:38→09:11)
[2021-10-29] MEDS ORDERED: LIDOCAINE HCL 1% PRESERVATIVE FREE - 30ML VIAL IJ ONE ×2 (08:38→08:52)
[2021-10-29] MEDS ORDERED: IOHEXOL 180 MG/1 ML ML IJ ONE ×2 (08:39→08:54)
[2021-10-29 09:46] VITALS: TEMP 98.9
[2021-10-29 13:19] VITALS: BP 130/80; PULSE 84
== END 2021-10-29 10:10 | disposition home or self-care (01) ==
LOC: JASU-SURG 04:19
PROVIDERS: ATTEND Pain Medicine Pain Medicine
PROC: BR16YZZ Fluoroscopy of Lumbar Facet Joint(s) using Other Contrast (ICD-10-PCS; 2021-10-29)
PROC: 3E0T3BZ Introduction of Anesthetic Agent into Peripheral Nerves and Plexi, Percutaneous Approach (ICD-10-PCS; principal; 2021-10-29 08:30)
DX: M47.816 Spondylosis without myelopathy or radiculopathy, lumbar region (principal)
CPT/HCPCS: 76000-TC-FY

== ENCOUNTER 2021-12-21 04:30 | Day surgery (SDC) | payer OTHER ==
[2021-12-20 11:52] VITALS: BMI 33.1
[~2021-12-21 04:30] MED LIST: BUPIVACAINE HCL/PF 0.75% 10 ML VIAL NR ONE
[2021-12-21] MEDS ORDERED: LIDOCAINE HCL/PF 1% SDV 5ML VIAL ONE (11:56)
[2021-12-21] MEDS ORDERED: DEXAMETHASONE SOD PHOSPHATE 10 MG/1 ML VIAL ONE (11:57)
[2021-12-21] MEDS ORDERED: IOHEXOL 180 MG/1 ML ML IJ ONE (12:51)
[2021-12-21] MEDS ORDERED: LIDOCAINE HCL 1% PRESERVATIVE FREE - 30ML VIAL IJ ONE (12:51)
[2021-12-21] MEDS ORDERED: BUPIVACAINE HCL/PF 0.75% 10 ML VIAL NR ONE (12:57)
[2021-12-21 14:02] VITALS: BP 126/79; PULSE 89; TEMP 98
== END 2021-12-21 13:45 | disposition home or self-care (01) ==
LOC: JASU-SURG 04:30
PROVIDERS: ATTEND Pain Medicine Pain Medicine
PROC: BR16YZZ Fluoroscopy of Lumbar Facet Joint(s) using Other Contrast (ICD-10-PCS; 2021-12-21)
PROC: 3E0T3BZ Introduction of Anesthetic Agent into Peripheral Nerves and Plexi, Percutaneous Approach (ICD-10-PCS; principal; 2021-12-21 13:00)
DX: M47.816 Spondylosis without myelopathy or radiculopathy, lumbar region (principal)
CPT/HCPCS: 76000-TC-FY; J1100